=== PATIENT | female | born 1955 | race Caucasian/White ===

== ENCOUNTER 2019-09-01 15:52 | Emergency (ER) | payer OTHER, SELFPAY ==
[2019-09-01 16:34] VITALS: BP 132/57; PULSE 96; RESP 12; TEMP 36.4; O2SAT 92; BMI 18.0
--- NOTE | 2019-09-01 16:58 | ED_ITS ---
HPI - Neuro Symptoms/Deficit General: Chief Complaint: Neuro Symptoms/Deficit Stated Complaint: carlene garnett Time Seen by Provider: 09/01/19 16:58 Source: patient Mode of arrival: ambulatory Limitations: no limitations History of Present Illness: HPI Narrative: Patient was brought in by her daughter today for concerns of a headache this morning. Patient reports that she had woke up this morning with a headache and took 2 ibuprofen. Patient then laid down at 8:00 and slept for about 3 hours. When patient awakened at 11 she felt well and has had no problems since. Patient mentioned it to her daughter who brought her to the ER for concerns of stroke syndrome. Patient had a history of a stroke about 2 years ago and was told that if she had a headache she was supposed to come to the ER to for further evaluation. Patient appears well. Patient appears in no acute distress. Patient denies any headache at this time. And patient appears to have no neural deficits. Associated symptoms: Reports headache(s) Review of Systems General: Reports: 10 or more systems reviewed and unremarkable except in HPI and below Neuro: Reports: headache(s) [facility] ED PFSH: Social History Smoking and tobacco status: current every day smoker Physical Exam Const: COMMON NORMALS: no acute distress and patient oriented x3 GENERAL APPEARANCE: cooperative HENMT: COMMON NORMALS: normocephalic and Normal external nose present HEAD & SCALP: normal to inspection and normocephalic NOSE: Normal external nose present MOUTH: Normal oral and palatal mucosa present THROAT: posterior oropharynx normal Eye: GENERAL EYE: appearance normal, both eyes and all related structures Neck/C-Spine: COMMON NORMALS: full ROM Lymph: LYMPHATIC: no lymphadenopathy noted Chest: COMMONS NORMALS: normal inspection of the chest Resp: COMMON NORMALS: normal respiratory effort EFFORT & INSPECTION: Yes able to speak in complete sentences Cardio: COMMON NORMALS: regular rate and regular rhythm RATE: regular rate RHYTHM: regular rhythm GI: COMMON NORMALS: non-tender Back/Pelvis: COMMON NORMALS: thoracic and lumbar spine normal to inspection Extremity: COMMON NORMALS: normal to inspection Neuro: COMMON NORMALS: patient oriented x3 and moves all extremities Psych: COMMON NORMALS: mental status grossly normal and cooperative Skin: COMMON NORMALS: no rashes or lesions noted GENERAL SKIN EXAM: no rash es or lesions noted Course Vital Signs: Vital signs: Vital Signs Temperature 97.6 F 09/01/19 16:34 Pulse Rate 91 09/01/19 17:22 Respiratory Rate 16 09/01/19 17:22 Blood Pressure 106/64 09/01/19 17:22 Pulse Oximetry 95 09/01/19 17:22 MDM - Neuro Symptoms/Deficit MDM Narrative: Medical decision making narrative: Patient was brought in by daughter for concerns of a headache she had this morning. Patient had no noticeable neural deficits. Patient reports that her headache was resolved after using ibuprofen this morning. Patient vital signs were normal. Differential diagnosis includes but not limited to inner cerebral hemorrhage, headache syndrome, electrolyte disturbance. Reviewed exam with patient with recommendations for follow-up and treatment. Patient reports understanding agreed to plan. Lab Data: Labs: Lab Results 09/01/19 09/01/19 Range/Units 17:15 17:15 WBC 5.0 (4.0-10.0) 10^3/ uL RBC 4.56 (4.1-5.3) 10^6/u L Hgb 14.8 (11.5-15.3) g/dL Hct 45.8 (37.0-47.0) % MCV 100.4 H (81-99) fL MCH 32.5 (28.0-34.0) pg MCHC 32.3 (30.0-36.0) g/dL RDW 13.3 (12.1-15.1) % Plt Count 187 (130-400) 10^3/c mm MPV 11.8 H (7.4-10.4) fL Neut % (Auto) 55.2 % Lymph % (Auto) 32.7 % [place] % (Auto) 9.9 % Eos % (Auto) 1.6 % Baso % (Auto) 0.4 % Neut # (Auto) 2.7 (1.8-7.7) 10^3/u L Lymph # (Auto) 1.6 (0.8-4.8) 10^3/u L [place] # (Auto) 0.5 (0.2-0.9) 10^3/u L Eos # (Auto) 0.1 (0.0-0.8) 10^3/u L Baso # (Auto) 0.0 (0.0-0.1) 10^3/u L Nucleated RBC % (a uto) 0 % Nucleated RBCs # 0.0 /100WBC Sodium 134 L (136-145) mmol/L Potassium 3.9 (3.5-5.1) mmol/L Chloride 91 L (98-107) mmol/L Carbon Dioxide 33 H (22-29) mmol/L Anion Gap 13.9 (5-19) BUN 17 (8-23) mg/dL Creatinine 0.6 (0.5-0.9) mg/dL GFR Calculation 101.0 (90-130) mL/min Glucose 86 (65-115) mg/dL Calculated Osmolal ity 274 L (285-295) mOsm/k g Calcium 10.1 (8.5-10.5) mg/dL Total Bilirubin 0.5 (0.15-1.2) mg/dL AST 19 (0-32) U/L ALT 12 (0-33) U/L Alkaline Phosphata se 54 (35-105) IU/L Total Protein 6.7 (6.6-8.7) g/dL Albumin 4.5 (3.5-5.2) g/dL Globulin 2.2 (1.3-4.6) g/dL EKG Data^: EKG 1: Attestation: I personally reviewed and interpreted this EKG as follows: (1715, sinus rhythm with regular rate at 82 bpm. No ectopy, no ST elevation. Some artifact is present.) Discharge Plan Discharge Patient Disposition: Home, Self-Care Clinical Impression: Headache Qualifiers: Headache type: unspecified Headache chronicity pattern: acute headache Intractability: not intractable Qualified Code(s): R51 - Headache Condition: Stable Discharge Orders: Discharge Order (Routine); Ordered 09/01/19 Ordered By: Durga Johnson Referrals: Marely Head FNP [Primary Care Provider] - Discharge Diet: Usual diet Discharge Activity: Increase activity as tolerated Patient Instructions: Acute Headache (ED) Activity Restrictions/Additional Instructions: Drink plenty of fluids. Continue routine medications as directed. Use acetaminophen or ibuprofen as needed for headache. If headaches not relieved with ibuprofen or other symptoms are noted return to the ER. Follow-up with primary care regarding headaches and further treatment options. Coding Level of Care Code ED Manager Basketball for Chg Fwd Exam Comprehensive
[2019-09-01 17:22] VITALS: BP 106/64; PULSE 91; RESP 16; O2SAT 95
--- NOTE | 2019-09-01 17:23 | ECG_ITS ---
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 Measurements Intervals [place] Rate: 82 P: 88 [place]: 149 QRS: 97 QRSD: 98 T: 89 QT: 362 QTc: 423 Interpretive Statements SINUS RHYTHM BORDERLINE RIGHT AXIS DEVIATION [QRS AXIS > 90] PATTERN CONSISTENT WITH PULMONARY DISEASE NONSPECIFIC ST ELEVATION [0.05+ mV ST ELEVATION] No previous ECG available for comparison Electronically Signed On 09-01-2019 21:51:34 CDT by Tony Loyola M.D. [id number]
--- NOTE | 2019-09-01 17:23 | CTR_ITS ---
PROCEDURE INFORMATION: Exam: CT Head Without Contrast Exam date and time: 09/01/2019 5:24 PM Age: 64 years old Clinical indication: Pain; Headache not specified; Patient HX: HX of stroke C/O UMAÑA this am - resolved; Additional info: Head ache TECHNIQUE: Imaging protocol: Computed tomography of the head without contrast. Radiation optimization: All CT scans at this facility use at least one of these dose optimization techniques: automated exposure control; mA and/or kV adjustment per patient size (includes targeted exams where dose is matched to clinical indication); or iterative reconstruction. COMPARISON: No relevant prior studies available. RADIATION DOSE METRICS: Total DLP (mGy-cm): 770.97 FINDINGS: Brain: Old left frontal operculum and left temporal lobe infarction. 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 Old posterior right frontal lobe lacunar infarction. Atrophic changes greater than that anticipated for the patient's chronological age. Currently no visible evidence of active or acute intracranial pathologic process. No visible intracranial hemorrhage. No visible direct or indirect findings of an acute or subacute infarction. Ventricles: No ventriculomegaly. Bones/joints: Unremarkable. No acute fracture. Sinuses: Mild chronic ethmoid and right maxillary sinusitis. Mastoid air cells: Visualized mastoid air cells are well aerated. Vasculature: Mild cerebral arterial sclerosis. Soft tissues: Unremarkable. CT/CT head wo con* [id number] IMPRESSION: 1. Currently no visible evidence of active or acute intracranial pathologic process or hemorrhage. 2. Old left frontal operculum and left temporal lobe infarction. 3. Old posterior right frontal lobe with lacunar infarction. Radiation Dose CTDIVOL = (mGy): DLP = 770.97 (mGy-cm)
[2019-09-01 17:48] LABS: Basophils % 0.4 %; Eosinophils # 0.1 10^3/uL (0.0-0.8); Eosinophils % 1.6 %; Hematocrit 45.8 % (37.0-47.0); Hemoglobin 14.8 g/dL (11.5-15.3); Lymphocytes # 1.6 10^3/uL (0.8-4.8); Lymphocytes % 32.7 %; Mean Corpuscular HGB Conc 32.3 g/dL (30.0-36.0); Mean Corpuscular Hemoglobin 32.5 pg (28.0-34.0); Mean Corpuscular Volume 100.4 fL (81-99); Mean Platelet Volume 11.8 fL (7.4-10.4); Monocytes # 0.5 10^3/uL (0.2-0.9); Monocytes % 9.9 %; Neutrophils # 2.7 10^3/uL (1.8-7.7); Neutrophils % 55.2 %; Nucleated Red Blood Cells % 0 %; Platelet Count 187 10^3/cmm (130-400); Red Blood Count 4.56 10^6/uL (4.1-5.3); Red Cell Distribution Width 13.3 % (12.1-15.1)
[2019-09-01 18:03] LABS: Alanine Aminotransferase 12 U/L (0-33); Albumin Level 4.5 g/dL (3.5-5.2); Alkaline Phosphatase 54 IU/L (35-105); Anion Gap 13.9 (5-19); Aspartate Amino Transferase 19 U/L (0-32); Blood Urea Nitrogen 17 mg/dL (8-23); Calcium 10.1 mg/dL (8.5-10.5); Carbon Dioxide 33 mmol/L (22-29); Chloride 91 mmol/L (98-107); Globulin 2.2 g/dL (1.3-4.6); Glucose 86 mg/dL (65-115); Osmolality Calculated 274 mOsm/kg (285-295); Potassium 3.9 mmol/L (3.5-5.1); Sodium 134 mmol/L (136-145); Total Bilirubin 0.5 mg/dL (0.15-1.2); Total Protein 6.7 g/dL (6.6-8.7)
[2019-09-01 19:02] VITALS: BP 141/73; PULSE 85; RESP 17; TEMP 36; O2SAT 92
== END 2019-09-01 18:39 | disposition home or self-care (01) ==
PROVIDERS: Emergency Provider Nurse Practitioner Family; PCP Nurse Practitioner
DX: R51 Headache (principal); F17.210 Nicotine dependence, cigarettes, uncomplicated
CPT/HCPCS: 12345; 70450; 80053; 85025; 93005; 99283

== ENCOUNTER → 2022-08-10 15:02 | Outpatient (BNVA) | payer MEDICARE, SELFPAY | PROVIDERS: PCP Nurse Practitioner; Visit Provider Nurse Practitioner | DX: E03.9 Hypothyroidism, unspecified (principal); L29.9 Pruritus, unspecified; L03.115 Cellulitis of right lower limb | CPT/HCPCS: 80053; 84443; 85025 ==

== ENCOUNTER → 2022-10-15 08:39 | Outpatient (BNVA) | payer MEDICARE, SELFPAY | PROVIDERS: PCP Nurse Practitioner; Visit Provider Nurse Practitioner | DX: E03.8 Other specified hypothyroidism (principal) | CPT/HCPCS: 84443; 85025 ==

== ENCOUNTER → 2022-12-15 09:16 | Outpatient (BNVA) | payer MEDICARE, SELFPAY | PROVIDERS: PCP Nurse Practitioner; Visit Provider Nurse Practitioner | DX: E03.8 Other specified hypothyroidism (principal) | CPT/HCPCS: 80053; 84443; 85025 ==

== ENCOUNTER → 2023-03-11 12:15 | Outpatient (BNVA) | payer MEDICARE, SELFPAY | PROVIDERS: PCP Nurse Practitioner; Visit Provider Nurse Practitioner | DX: E03.8 Other specified hypothyroidism (principal) | CPT/HCPCS: 84443 ==

== ENCOUNTER → 2023-05-24 11:43 | Outpatient (BNVA) | payer OTHER, SELFPAY | PROVIDERS: PCP Nurse Practitioner; Visit Provider Nurse Practitioner | DX: E03.8 Other specified hypothyroidism (principal) | CPT/HCPCS: 80053; 80061; 84439; 84443; 84481 ==

== ENCOUNTER 2023-08-17 12:20 | Inpatient (IN) | payer OTHER, SELFPAY ==
[2023-08-17] VITALS (17 sets, daily range): BP systolic 98–123; BP diastolic 48–74; PULSE 100–126; RESP 12–21; TEMP 36.4–36.6; O2SAT 88–99
--- NOTE | 2023-08-17 12:23 | ECG_ITS ---
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 Measurements Intervals [place] Rate: 113 P: 75 [place]: 141 QRS: 112 QRSD: 98 T: 53 QT: 317 QTc: 436 Interpretive Statements SINUS TACHYCARDIA RIGHT AXIS DEVIATION [QRS AXIS > 100] LOW QRS VOLTAGE IN EXTREMITY LEADS [QRS DEFLECTION < 0.5 mV IN LIMB LEADS] PATTERN CONSISTENT WITH PULMONARY DISEASE Compared to ECG 09/01/2019 17:15:43 Low QRS voltage now present Sinus rhythm no longer present ST (T wave) deviation no longer present Electronically Signed On 08-17-2023 17:19:48 CDT by Dangelo Narvaez M.D. [id number]
--- NOTE | 2023-08-17 12:23 | XRR_ITS ---
PROCEDURE INFORMATION: Exam: XR Chest Exam date and time: 08/17/2023 12:40 PM Age: 68 years old Clinical indication: Cough and dyspnea; Additional info: Dyspnea/cough TECHNIQUE: Imaging protocol: Radiologic exam of the chest. Views: 1 view. COMPARISON: No relevant prior studies available. FINDINGS: Lungs: There are emphysematous changes noted. There are patchy bilateral lower lobe infiltrates, xkfes-jhzobme-xeyq-left. Pleural spaces: There are iccnb-ne-sddkpnsr right and small left pleural effusions. Heart/Mediastinum: The heart size is within normal limits. Bones/joints: There is a remote healed fracture deformity of the right posterior 7th rib. XR/XR chest 1V portable [id number] IMPRESSION: 1. Gxlii-qt-swumutkx right and small left pleural effusions with bilateral lower lobe infiltrates, suspicious for pneumonia. 2. Emphysematous changes
--- NOTE | 2023-08-17 12:28 | W.ED.SOB ---
HPI - SOB/Dyspnea General: Chief Complaint: Shortness of Breath/Dyspnea Stated Complaint: SOB, Gen weakness Time Seen by Provider: 08/17/23 12:23 Source: patient Mode of arrival: ambulatory History of Present Illness: HPI Narrative: 68-year-old female presents emergency room complaining of generalized weakness and short of breath increasing shortness of breath recently she is alert but very disoriented difficult time to get history from her she answers questions rather tangentially. She is requiring oxygen I usually she is on 2 they have increased it to 3 she denies chest pain or shortness of breath she does have a chronic cough which has worsened she denies a cough being productive. She still does smoke regularly although family members reported that she has gotten so weak she has difficult time even being able to smoke recently. MD elicited complaint: shortness of breath Pertinent past history: COPD Associated symptoms: Reports chest congestion and cough; Deny abdominal pain, chest pain, diaphoresis, dizziness, extremity pain, fever(s), hemoptysis, lightheadedness, myalgias, nausea, orthopnea, palpitations, paresthesias, polydipsia, polyuria, rash, sense of impending doom, syncope or vomiting Treatment prior to arrival: oxygen Review of Systems Const: Reports: fatigue and malaise; Denies: fever(s), chills or diaphoresis Card: Denies: chest pain, palpitations, lightheadedness, syncope or orthopnea Resp: Reports: dyspnea and chest congestion; Denies: hemoptysis GI: Denies: abdominal pain, nausea or vomiting : Denies: dysuria, urinary frequency or urinary urgency Musc: Denies: neck pain, back pain or extremity pain Skin/Breast: Denies: rash Neuro: Denies: dizziness Endo: Denies: polyuria or polydipsia PFS ED PFSH: Medical History Adult onset hypothyroidism History of stroke COPD (chronic obstructive pulmonary disease) with emphysema Surgical History No history of previous surgery Family History Other Cancer Dementia Stroke Denies family history of CAD (coronary artery disease) Chronic kidney disease (CKD) Hypertension Social History Smoking and tobacco/nicotine status: former use of tobacco/nicotine Second hand smoke exposure: No Alcohol intake: unknown Substance/Drug Use: unknown Adopted: No Caregiver/support person: No Lives independently: Yes Household members: none Housing: House Marital status: / service: No Current occupational status: unemployed Do you think of yourself as: Straight/Heterosexual Current gender identity: Female Physical Exam Const: GENERAL APPEARANCE: cooperative ORIENTATION/CONSCIOUSNESS: Yes awake, Yes oriented to person, Yes oriented to place and Yes oriented to time HENMT: COMMON NORMALS: normocephalic, atraumatic and hearing grossly normal bilaterally HEAD & SCALP: normocephalic and atraumatic Resp: COMMON NORMALS: normal respiratory effort, No retractions and No use of accessory muscles AUSCULTATION: rhonchi and wheezes Cardio: COMMON NORMALS: regular rhythm and No murmurs present (Cardio) RATE: tachycardic RHYTHM: regular rhythm GI: COMMON NORMALS: Soft to palpation and No hepatosplenomegaly present AUSCULTATION: Yes normoactive bowel sounds PALPATION: Yes Soft to palpation, No Tenderness to palpation present (GI), No Guarding due to palpation present (GI) and Yes No hepatosplenomegaly present Extremity: COMMON NORMALS: normal to inspection, capillary refill normal, no clubbing, cyanosis or edema, no calf tenderness and no pedal edema Neuro: SENSORIUM/ORIENTATION: Yes oriented to person, Yes oriented to place and Yes oriented to time Skin: COMMON NORMALS: no rashes or lesions noted GENERAL SKIN EXAM: no rashes or lesions noted Course Vital Signs: Vital signs: Vital Signs Temperature 97.8 F 08/17/23 12:24 Pulse Rate 109 H 08/17/23 15:35 Respiratory Rate 12 08/17/23 15:35 Blood Pressure 108/59 08/17/23 15:35 Pulse Oximetry 99 08/17/23 15:35 Oxygen Delivery Me thod BiPAP 08/17/23 15:12 Oxygen Flow Rate 3 08/17/23 12:41 Fraction of Inspir ed Oxygen 35 08/17/23 13:23 MDM - SOB/Dyspnea Medical Decision Making Acute exacerbation COPD with bilateral pleural effusions and signs of pneumonia right greater than left. Started on IV antibiotics fluids given discussed with hospitalist orders written. Medical Records I reviewed the patient's medical records. Lab Data I reviewed the patient's lab results. 08/17/23 13:03 08/17/23 13:03 Labs/Radiology: Radiology Impressions Chest X-Ray 08/17/23 12:23 IMPRESSION: 1. Vlewz-nq-nksqykes right and small left pleural effusions with bilateral lower lobe infiltrates, suspicious for pneumonia. 2. Emphysematous changes Chest CTA 08/17/23 13:36 IMPRESSION: 1. No evidence of pulmonary embolus. 2. Moderate RIGHT and small LEFT pleural effusions with compressive atelectasis RIGHT lower lobe. Laboratory Results WBC 6.43 10^3/uL (3.29-11.43) 08/17/23 13:03 RBC 4.85 10^6/uL (3.85-5.65) 08/17/23 13:03 Hgb 15.70 g/dL (11.27-16.99) 08/17/23 13:03 Hct 51.5 % (36-47) H 08/17/23 13:03 MCV 106.2 fl (85-98) H 08/17/23 13:03 MCH 32.4 pg (27-33) 08/17/23 13:03 MCHC 30.5 g/dL (30-55) 08/17/23 13:03 RDW 14.9 % (12.1-15.1) 08/17/23 13:03 Plt Count 156 10^3/cmm (157-399) L 08/17/23 13:03 MPV 11.3 fL (7.4-10.4) H 08/17/23 13:03 Neut % (Auto) 80.4 % 08/17/23 13:03 Lymph % (Auto) 9.5 % 08/17/23 13:03 [place] % (Auto) 9.5 % 08/17/23 13:03 Eos % (Auto) 0.0 % 08/17/23 13:03 Baso % (Auto) 0.3 % 08/17/23 13:03 Neut # (Auto) 5.17 10^3/uL (1.8-7.7) 08/17/23 13:03 Lymph # (Auto) 0.6 10^3/uL (0.8-4.8) L 08/17/23 13:03 [place] # (Auto) 0.6 10^3/uL (0.2-0.9) 08/17/23 13:03 Eos # (Auto) 0.0 10^3/uL (0.0-0.8) 08/17/23 13:03 Baso # (Auto) 0.0 10^3/uL (0.0-0.1) 08/17/23 13:03 Nucleated RBC % (auto) 0 % 08/17/23 13:03 Nucleated RBCs # 0.0 /100WBC 08/17/23 13:03 Specimen Type Arterial 08/17/23 12:59 Sample Site Brachial, left 08/17/23 12:59 ABG pH 7.31 (7.35-7.45) L 08/17/23 12:59 ABG pCO2 88.2 mmHg (35-45) H* 08/17/23 12:59 ABG pO2 79.4 mmHg (80.0-100.0) L 08/17/23 12:59 ABG PO2/FiO2 Ratio 0 08/17/23 12:59 ABG HCO3 44.5 mmol/L (22-26) H 08/17/23 12:59 ABG O2 Saturation 94.8 08/17/23 12:59 ABG Base Excess 13.1 mmol/L (-2.0-2.0) H 08/17/23 12:59 Manuel Test Pos 08/17/23 12:59 A-a O2 Gradient 5.7 mmHg (5-10) 08/17/23 12:59 Hematocrit 49.7 % (37-47) H 08/17/23 12:59 Hgb O2 Saturation 92.9 % (95-100) L 08/17/23 12:59 Carboxyhemoglobin 2.0 %THgb (0.4-20.1) 08/17/23 12:59 Methemoglobin 0.0 % (0.4-1.5) L 08/17/23 12:59 Total Hemoglobin 16.2 g/dL (12-16) H 08/17/23 12:59 Sodium 137.0 mmol/L (131-143) 08/17/23 12:59 Potassium 4.4 mmol/L (3.5-5.0) 08/17/23 12:59 Glucose 111.0 mg/dL (70-115) 08/17/23 12:59 Ionized Calcium 1.2 mmol/L (1.1-1.4) 08/17/23 12:59 O2 Delivery Device Nc 08/17/23 12:59 O2 Liters/Min 3.0 % 08/17/23 12:59 FiO2 32.0 % 08/17/23 12:59 Radioactive Waste Disposal Dispatcher ID Cak 08/17/23 12:59 Sodium 139 mmol/L (136-145) 08/17/23 13:03 Potassium 4.8 mmol/L (3.5-5.1) 08/17/23 13:03 Chloride 93 mmol/L (98-107) L 08/17/23 13:03 Carbon Dioxide 42 mmol/L (22-29) H* 08/17/23 13:03 Anion Gap 8.8 (5-19) 08/17/23 13:03 BUN 22 mg/dL (8-23) 08/17/23 13:03 Creatinine 0.6 mg/dL (0.5-0.9) 08/17/23 13:03 GFR Calculation 99.7 mL/min (90-130) 08/17/23 13:03 Glucose 123 mg/dL (65-115) H 08/17/23 13:03 Calculated Osmolality 293 mOsm/kg (285-295) 08/17/23 13:03 Lactic Acid 1.0 mmol/L (0.5-2.2) 08/17/23 13:03 Calcium 8.8 mg/dL (8.5-10.5) 08/17/23 13:03 Total Bilirubin 0.5 mg/dL (0.15-1.2) 08/17/23 13:03 AST 19 U/L (0-32) 08/17/23 13:03 ALT 13 U/L (0-33) 08/17/23 13:03 Alkaline Phosphatase 74 U/L (35-105) 08/17/23 13:03 Troponin T Baseline 106 ng/L (0-10) H* 08/17/23 13:03 Troponin T 120 Minute 68.00 ng/L (0-10) H 08/17/23 14:52 Delta Troponin T -38.00 ABS# (0-10) L 08/17/23 14:52 NT-Pro-B Natriuret Pep 8162 pg/mL (0-125) H 08/17/23 13:03 Total Protein 5.6 g/dL (6.6-8.7) L 08/17/23 13:03 Albumin 3.4 g/dL (3.5-5.2) L 08/17/23 13:03 Globulin 2.2 g/dL (1.3-4.6) 08/17/23 13:03 All radiology interpretation(s) finalized by discharge Discharge Plan Discharge Patient Disposition: Admitted As Inpatient Admit Provider: Kimberly Albright Clinical Impression: Acute exacerbation of chronic obstructive pulmonary disease (COPD), Acute respiratory failure with hypoxia and hypercapnia, Community acquired pneumonia Condition: Stable Coding Level of Care Code ED Relief Salesperson for Godwin Du
[2023-08-17] MEDS: ipratropium-albuterol 3 mL Neb INHALATION ×3 (12:40→20:46)
[2023-08-17 13:10] LABS: ABG PCO2 88.2 mmHg (35-45); ABG PH Result 7.31 (7.35-7.45); Alveolar-Arterial Oxygen Gradi 5.7 mmHg (5-10); Arterial Blood Gas Hematocrit 49.7 % (37-47); Base Excess ABG 13.1 mmol/L (-2.0-2.0); Blood Gas Allen Test Pos; Blood Gas Operator Identificat CAK; Blood Gas Sample Site Brachial, left; Blood Gas Sample Type Arterial; HCO3 ABG 44.5 mmol/L (22-26); HGB O2 Sat 92.9 % (95-100); Ionized Calcium Level - ABG 1.2 mmol/L (1.1-1.4); Oxygen Device NC; Oxygen Saturation ABG 94.8; PO2 ABG 79.4 mmHg (80.0-100.0); PO2 FiO2 Ratio Arterial Blood 0; Potassium Level - ABG 4.4 mmol/L (3.5-5.0); Total Hemoglobin 16.2 g/dL (12-16)
[2023-08-17 13:10] LABS: Basophils % 0.3 %; Hematocrit 51.5 % (36-47); Lymphocytes # 0.6 10^3/uL (0.8-4.8); Lymphocytes % 9.5 %; Mean Corpuscular HGB Conc 30.5 g/dL (30-55); Mean Corpuscular Hemoglobin 32.4 pg (27-33); Mean Corpuscular Volume 106.2 fl (85-98); Mean Platelet Volume 11.3 fL (7.4-10.4); Monocytes # 0.6 10^3/uL (0.2-0.9); Monocytes % 9.5 %; Neutrophils # 5.17 10^3/uL (1.8-7.7); Neutrophils % 80.4 %; Nucleated Red Blood Cells % 0 %; Platelet Count 156 10^3/cmm (157-399); Red Blood Count 4.85 10^6/uL (3.85-5.65); Red Cell Distribution Width 14.9 % (12.1-15.1); White Blood Count 6.43 10^3/uL (3.29-11.43)
[2023-08-17 13:30] LABS: Alanine Aminotransferase 13 U/L (0-33); Albumin Level 3.4 g/dL (3.5-5.2); Alkaline Phosphatase 74 U/L (35-105); Anion Gap 8.8 (5-19); Aspartate Amino Transferase 19 U/L (0-32); Blood Urea Nitrogen 22 mg/dL (8-23); Calcium 8.8 mg/dL (8.5-10.5); Chloride 93 mmol/L (98-107); Creatinine Clr Calc Pharmacy 54.3916; Globulin 2.2 g/dL (1.3-4.6); Glomerular Filtration Rate 99.7 mL/min (90-130); Glucose 123 mg/dL (65-115); Osmolality Calculated 293 mOsm/kg (285-295); Potassium 4.8 mmol/L (3.5-5.1); Sodium 139 mmol/L (136-145); Total Bilirubin 0.5 mg/dL (0.15-1.2); Total Protein 5.6 g/dL (6.6-8.7)
[2023-08-17 13:34] LABS: Carbon Dioxide 42 mmol/L (22-29)
[2023-08-17 13:35] LABS: Troponin(5th) Baseline 106 ng/L (0-10)
--- NOTE | 2023-08-17 13:36 | CT_ITS ---
WS: [id number] CTA OF THE CHEST WITH PULMONARY EMBOLISM PROTOCOL TECHNIQUE: High-resolution contrast enhanced CTA of the chest with coronal and sagittal reformatted i mages with pulmonary embolism protocol. MIP images are also reviewed. CLINICAL INFORMATION: dyspnea/tachycardia/hypoxia COMPARISON: None. DLP: 203.[address] scans at [facility] use at least one of these dose optimization techniques: automated e xposure control; mA and/or kV adjustment per patient size (includes targeted exams where dose is matc hed to clinical indication); or iterative reconstruction. FINDINGS: Proximal main pulmonary arteries are normal. Normal segmental and subsegmental pulmonary arteries. No evidence of pulmonary embolus. Moderate RIGHT and small LEFT pleural effusions. Compressive atelectasis RIGHT lower lobe. Chronic em physematous changes. Few patchy opacities in the RIGHT middle lobe. Diffuse body wall anasarca. Basilia l caliber thoracic aorta. Normal GE junction. Anasarca partially visualized in the upper abdomen. Par tially visualized LEFT renal cysts. Small RIGHT renal cyst. CT/CT angio chest PE protcl [id number] IMPRESSION: 1. No evidence of pulmonary embolus. 2. Moderate RIGHT and small LEFT pleural effusions with compressive atelectasi s RIGHT lower lobe.
--- NOTE | 2023-08-17 13:36 | USCV_ITS ---
David Frias Age: 68 Gender: F : 1955 Exam Date: 08/17/2023 13:56 Ordering Phys: Papo Hardy DO Technologist: [email or web address] Exam Location: [facility] [place] Indication: PROCEDURES: Venous duplex imaging was performed in bilateral lower extremities. Bilaterally, the common femoral, superficial femoral, profunda femoral, popliteal, posterior tibial, greater saphenous veins, and the peroneal trunk were identified and interrogated in the standard fashion. These veins were found to be easily compressible with spontaneous blood flow. No evidence of insufficiency or thrombus noted. FINDINGS: no dvt CONCLUSIONS No evidence of right lower extremity DVT. No evidence of left lower extremity DVT. Wei Calles MD (Electronically Signed) Final Date: 17 August 2023 16:34 S
--- NOTE | 2023-08-17 14:10 | ECG_ITS ---
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 Measurements Intervals [place] Rate: 102 P: 74 [place]: 139 QRS: 106 QRSD: 93 T: 73 QT: 350 QTc: 457 Interpretive Statements SINUS TACHYCARDIA RIGHT AXIS DEVIATION [QRS AXIS > 100] LOW QRS VOLTAGE IN EXTREMITY LEADS [QRS DEFLECTION < 0.5 mV IN LIMB LEADS] POSSIBLE ANTERIOR MYOCARDIAL INFARCTION , OF INDETERMINATE AGE [30 ms Q WAVE IN V3/V4, OR R < 0.2 mV IN V4] Compared to ECG 08/17/2023 12:27:50 Myocardial infarct finding now present Electronically Signed On 08-17-2023 17:23:13 CDT by Dangelo Narvaez M.D. [id number]
[2023-08-17 14:12] LABS: NT Pro B Type Natriuretic Pept 8162 pg/mL (0-125)
[2023-08-17] MEDS: iohexol 350 mg/mL 500 mL Btl (per mL) IV (14:19)
[2023-08-17] MEDS: piperacillin-tazobactam 3.375 GM in sodium chloride 0.9% (plus) 50 ML IV (14:53)
--- NOTE | 2023-08-17 15:01 | P.HP_ITS ---
Providers/Chief Complaint 2 Primary Care Provider: BLANCA Odonnell Chief Complaint: SOB, Gen weakness History of Present Illness David Frias is a 68 year old female with history of hypothyroidism, COPD on supplemental oxygen 4 L nasal cannula at home, active smoker, smokes more than 2 packs/day, presented with complaint of worsening shortness of breath since 2 weeks. Patient states that she started feeling short of breath 2 weeks ago initially on exertion and then gradually progressed to shortness of breath at rest, was not associated with any fever, cold, although she was coughing initially but no significant cough, chest pain, urinary or bowel complaints. She denies any history of recent travel or sick contact. She admits she has not been smoking since last 2 weeks and was increasing her supplemental oxygen but without any relief. She had a PCP appointment scheduled 1 week ago but she missed it. Her shortness of breath made her bedbound gradually and she was sleeping most of the time and it was associated with severe weakness and right- sided facial swelling.She recently has been using medical marijuana which she says helps her to calm her down and improves her breathing. In ER she was found to have a BNP of 8162, first set of troponins 106, ABGs 7 point 3/88/79/44/92% on room air. She was started on BiPAP at 18/6/12/35% FiO2 and was still saturating at 79%. FiO2 increased to 40% and she is saturating 88 to 89%. Review of Systems 2 General: Reports: 10 or more systems reviewed and unremarkable except in HPI and below Medications/Allergies Home Medications Medication Instructions Recorded Confirmed Last Taken Type levothyroxine 125 mcg tablet 125 mcg PO DAILY #30 tabs 05/27/23 08/17/23 08/17/23 Rx Allergies Allergy/AdvReac Type Severity Reaction Status Date / Time No Known Allergies Allergy Verified 08/17/23 10:57 PFSH Acute 2 PFSH: Medical History Adult onset hypothyroidism History of stroke COPD (chronic obstructive pulmonary disease) with emphysema Surgical History No history of previous surgery Family History Other Cancer Dementia Stroke Denies family history of CAD (coronary artery disease) Chronic kidney disease (CKD) Hypertension Social History Smoking and tobacco/nicotine status: former use of tobacco/nicotine Second hand smoke exposure: No Alcohol intake: unknown Substance/Drug Use: unknown Adopted: No Caregiver/support person: No Lives independently: Yes Household members: none Housing: House Marital status: / service: No Current occupational status: unemployed Do you think of yourself as: Straight/Heterosexual Current gender identity: Female Vitals/I&O/Wt Last Vital Signs Temp 97.8 F 08/17/23 12:24 Pulse 107 H 08/17/23 13:57 Resp 18 08/17/23 12:41 BP 104/65 08/17/23 13:57 Pulse Ox 93 08/17/23 13:57 O2 Del Method BiPAP 08/17/23 13:57 O2 Flow Rate 3 08/17/23 12:41 FiO2 35 08/17/23 13:23 Weight last 48 hrs Weight 47.627 kg Physical Exam 2 Narrative: She is alert awake oriented x 3, in no acute distress due to dyspnea, unable to speak in full sentences. Chest air entry equal on both sides, decreased breath sounds at bilateral bases, normal breath sounds anteriorly. Cardiovascular normal heart sounds no murmurs. Abdomen soft nontender nondistended normal bowel sounds. Extremities no edema noted bilateral lower extremities Data 08/17/23 13:03 08/17/23 13:03 Micro: Microbiology 08/17/23 13:42 Blood Culture - Preliminary Blood SPECIMEN COLLECTED 08/17/23 13:50 Blood Culture - Preliminary Blood SPECIMEN COLLECTED A&P Assessment and plan (1) Acute respiratory failure with hypoxia and hypercapnia: (2) Acute exacerbation of chronic obstructive pulmonary disease (COPD): (3) Fluid overload: (4) Hypothyroidism: Plan 68 year old female with history of hypothyroidism, COPD on supplemental oxygen 4 L nasal cannula at home, active smoker, smokes more than 2 packs/day, presented with complaint of worsening shortness of breath since 2 weeks, found to have a BNP of 8162, pCO2 of 88 and chest x-ray consistent with 1. Modhi-zz-vzuwbdwj right and small left pleural effusions with bilateral lower lobe infiltrates, suspicious for pneumonia. 2. Emphysematous changes and Chest CTA 1. No evidence of pulmonary embolus. 2. Moderate RIGHT and small LEFT pleural effusions with compressive atelectasis RIGHT lower lobe. EKG showed sinus tachycardia at 113 bpm, right axis deviation, no acute ST-T changes. (1) Acute hypoxic and hypercarbic respiratory failure second Wendell to acute COPD exacerbation and possible pneumonia- Continue BiPAP for now Repeat ABG in 3 hours Will do IV antibiotics ceftriaxone 1 g daily and IV azithromycin 500 mg daily IV Solu-Medrol 60 mg every 8 hours DuoNebs every 6 hours Will follow blood cultures Check 2D echo Follow-up troponins. (2) Hypothyroidism-will continue levothyroxine 125 mcg daily (3) Counseled and educated about smoking cessation Cardiac diet DVT prophylaxis with subcutaneous Lovenox GI prophylaxis with IV Pepcid 20 mg twice daily She is full code for now Attestations 2 Medical Necessity Statement*: She needs continued hospitalization crossing 2 midnights for management of acute hypoxic and hypercarbic respiratory failure with BiPAP support, IV antibiotics and steroids, 2D echo and troponins check Time Spent in Patient Care: 45 minutes Coding Level of Care Code Acute Code for Chg Fwd Diagnoses Acute respiratory failure with hypoxia and hypercapnia J96.01; J96.02 Acute exacerbation of chronic obstructive pulmonary disease (COPD) J44.1 Fluid overload E87.70 Hypothyroidism E03.9 Time Spent (min) 45
--- NOTE | 2023-08-17 15:20 | USCV_ITS ---
David Frias Age: 68 Gender: F : 1955 Exam Date: 08/17/2023 20:16 Ordering Phys: Kimberly Albright MD Technologist: CORNELIUS Exam Location: [facility] [place] Indication: acute resp failure, COPD, long-term smoker, continues smoking. BP: 98 / 48 HR: 105 Rhythm: Sinus Technical Quality: Adequate MEASUREMENTS (Male / Female) Normal Values 2D ECHO LV Diastolic Diameter PLAX 3.4 cm 4.2 - 5.9 / 3.9 - 5.3 cm IVS Diastolic Thickness 1.0 cm 0.6 - 1.0 / 0.6 - 0.9 cm IVS Systolic Thickness 1.3 cm LVPW Diastolic Thickness 1.2 cm 0.6 - 1.0 / 0.6 - 0.9 cm LVPW Systolic Thickness 1.5 cm LVOT Diameter 1.8 cm LV Ejection Fraction 2D Teich 64.0 % LV Ejection Fraction MOD 2C 67.6 % LV Ejection Fraction 2C AL 64.6 % LA Diameter 3.6 cm Aorta at Sinotubular Diameter 2.8 cm IVC Diameter 3.1 cm M-MODE LA Ao Ratio MM 1.2 AV Cusp Separation MM 1.8 cm DOPPLER AV Peak Velocity 132.0 cm/s LVOT Peak Velocity 79.0 cm/s AV Area Cont Eq vti 1.9 cm squared AV Area Cont Eq pk 1.5 cm squared MV Peak Velocity 91.0 cm/s MV Area PHT 6.3 cm squared Mitral E to A Ratio 0.8 TV Peak Velocity 282.3 cm/s TR Peak Velocity 283.0 cm/s TR Peak Gradient 32.0 mmHg TV Peak E Velocity 41.0 cm/s Right Atrial Pressure 10.0 mmHg Pulmonary Artery Systolic Pressu 42.0 mmHg PV Peak Velocity 80.0 cm/s FINDINGS Left Ventricle Left ventricle is normal in size. LV systolic function is normal with EF of 60 to 65%. No regional wall abnormalities are seen. Grade 1 diastolic dysfunction. Right Ventricle RV is dilated and hypokinetic. Right Atrium Dilated Left Atrium Dilated Mitral Valve Structurally normal mitral valve. Mild mitral regurgitation Aortic Valve Aortic valve is thickened. No significant stenosis or regurgitation. Tricuspid Valve Mild tricuspid regurgitation. RVSP is 40 to 45 mmHg. This is consistent with mild pulmonary hypertension. Pulmonic Valve Mild pulmonic regurgitation. Pericardium Normal. Pleural effusion seen Aorta Normal in size IVC Appears to be dilated CONCLUSIONS LV systolic function is normal with EF of 60-65% Grade 1 diastolic dysfunction RV is dilated and hypokinetic. Biatrial enlargement Mild mitral regurgitation Mild tricuspid regurgitation Mild pulmonary hypertension Pleural effusion is seen IVC is dilated No comparison studies are available. Dangelo Narvaez MD (Electronically Signed) Final Date: 18 August 2023 09:11 S
[2023-08-17] MEDS: levofloxacin-dextrose 5 % 500 MG/100 ML PREMIX 100 MG IV (15:30)
[2023-08-17] MEDS: enoxaparin 40 mg/0.4 mL Syringe SUBCUT (15:57)
[2023-08-17] MEDS: famotidine 20 mg/2 mL INJ IVP (16:42)
[2023-08-17] MEDS: methylPREDNISolone sod succ 125 mg/2 mL INJ 60 MG IVP ×2 (16:42→23:36)
[2023-08-17] MEDS: azithromycin 500 MG in sodium chloride 0.9% 250 ML 250 MG IV (16:44)
[2023-08-17 17:24] LABS: ABG PH Result 7.39 (7.35-7.45); Alveolar-Arterial Oxygen Gradi 14.8 mmHg (5-10); Arterial Blood Gas Hematocrit 46.7 % (37-47); Base Excess ABG 14.7 mmol/L (-2.0-2.0); Blood Gas Allen Test Pos; Blood Gas Operator Identificat CAK; Blood Gas Sample Site Brachial, left; Blood Gas Sample Type Arterial; Carboxyhemoglobin 1.8 %THgb (0.4-20.1); HCO3 ABG 43.9 mmol/L (22-26); HGB O2 Sat 94.9 % (95-100); Ionized Calcium Level - ABG 1.2 mmol/L (1.1-1.4); Methemoglobin 0.1 % (0.4-1.5); Oxygen Device BIPAP; Oxygen Saturation ABG 96.8; PO2 ABG 83.2 mmHg (80.0-100.0); PO2 FiO2 Ratio Arterial Blood 0; Potassium Level - ABG 4.5 mmol/L (3.5-5.0); Total Hemoglobin 15.3 g/dL (12-16)
[2023-08-17 17:25] LABS: ABG PCO2 73.3 mmHg (35-45)
--- NOTE | 2023-08-17 17:35 | ECG_ITS ---
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 Measurements Intervals [place] Rate: 104 P: 81 [place]: 145 QRS: 121 QRSD: 89 T: 72 QT: 355 QTc: 468 Interpretive Statements SINUS TACHYCARDIA RIGHT AXIS DEVIATION [QRS AXIS > 100] LOW QRS VOLTAGE IN EXTREMITY LEADS [QRS DEFLECTION < 0.5 mV IN LIMB LEADS] POSSIBLE ANTERIOR MYOCARDIAL INFARCTION , OF INDETERMINATE AGE [30 ms Q WAVE IN V3/V4, OR R < 0.2 mV IN V4] Compared to ECG 08/17/2023 14:10:39 No significant changes Electronically Signed On 08-17-2023 17:38:49 CDT by Dangelo Narvaez M.D. [email or web address] [email or web address].[employer]/store/[id number]
[2023-08-17 19:47] LABS: Troponin 5 6HR 119.5 ng/L (0-10); Troponin 5 6HR Delta 13.5 ng/L (0-12)
[2023-08-17] MEDS: aspirin 81 mg EC Tablet PO (21:00)
[2023-08-17] MEDS: enoxaparin 30 mg/0.3 mL Syringe SUBCUT (21:02)
[2023-08-17] MEDS: FUROsemide 10 mg/mL SDV 4mL 40 MG IVP (21:04)
[2023-08-17 22:26] LABS: Add Urine Microscopic? YES; Bilirubin Urine Neg (Negative); Blood Urine 2+ (Negative); Glucose Urine UA Norm (Normal); Ketones Urine Negative (Negative); Leukocyte Esterase Urine Negative (Negative); Nitrate Urine Negative (Negative); Protein Urine Neg (Negative); Specific Gravity, Urine 1.015 (1.005-1.030); Urine Appearance Clear (CLEAR); Urine Color Yellow (Yellow); Urobilinogen Urine Norm (Negative); pH Urine 6 (5-7)
[2023-08-17 22:27] LABS: Add Urine Culture? No; Bacteria Urine TRACE /hpf; RBC Urine 0-4 /hpf (0-2); Squamous Epithelial Cell Urine 0-4 /hpf (0-5); WBC Urine 0-4 /hpf (0-5)
[2023-08-18] VITALS (20 sets, daily range): BP systolic 103–115; BP diastolic 56–65; PULSE 72–129; RESP 14–30; TEMP 36.4–37.4; O2SAT 87–95
[2023-08-18 03:53] LABS: Hematocrit 50.8 % (36-47); Lymphocytes # 0.2 10^3/uL (0.8-4.8); Lymphocytes % 5.5 %; Mean Corpuscular HGB Conc 30.9 g/dL (30-55); Mean Corpuscular Hemoglobin 31.9 pg (27-33); Mean Corpuscular Volume 103.3 fl (85-98); Mean Platelet Volume 11.8 fL (7.4-10.4); Monocytes # 0.1 10^3/uL (0.2-0.9); Monocytes % 3.1 %; Neutrophils # 3.46 10^3/uL (1.8-7.7); Neutrophils % 90.9 %; Nucleated Red Blood Cells % 0 %; Platelet Count 142 10^3/cmm (157-399); Red Blood Count 4.92 10^6/uL (3.85-5.65); White Blood Count 3.81 10^3/uL (3.29-11.43)
[2023-08-18] MEDS: famotidine 20 mg/2 mL INJ IVP ×2 (04:01→16:05)
[2023-08-18 04:15] LABS: Alanine Aminotransferase 11 U/L (0-33); Albumin Level 3.3 g/dL (3.5-5.2); Alkaline Phosphatase 69 U/L (35-105); Anion Gap 11.5 (5-19); Aspartate Amino Transferase 16 U/L (0-32); Blood Urea Nitrogen 20 mg/dL (8-23); Calcium 8.7 mg/dL (8.5-10.5); Chloride 89 mmol/L (98-107); Creatinine Clr Calc Pharmacy 63.8223; Glomerular Filtration Rate 99.7 mL/min (90-130); Glucose 130 mg/dL (65-115); Magnesium 1.8 mg/dL (1.7-2.3); Osmolality Calculated 288 mOsm/kg (285-295); Potassium 4.5 mmol/L (3.5-5.1); Sodium 137 mmol/L (136-145); Total Bilirubin 0.4 mg/dL (0.15-1.2); Total Protein 5.3 g/dL (6.6-8.7)
[2023-08-18 04:20] LABS: Carbon Dioxide 41 mmol/L (22-29)
[2023-08-18 04:21] LABS: NT Pro B Type Natriuretic Pept 7178 pg/mL (0-125)
[2023-08-18] MEDS: enoxaparin 80 mg/0.8 mL Syringe 70 MG SUBCUT ×2 (06:18→18:24)
[2023-08-18] MEDS: ipratropium-albuterol 3 mL Neb INHALATION ×4 (07:27→20:35)
[2023-08-18] MEDS: methylPREDNISolone sod succ 125 mg/2 mL INJ 60 MG IVP ×3 (08:59→22:40)
[2023-08-18] MEDS: cefTRIAXone 1,000 MG in sodium chloride 0.9% (plus) 50 ML 100 MG IV (08:59)
[2023-08-18] MEDS: aspirin 81 mg EC Tablet PO (08:59)
[2023-08-18] MEDS: levothyroxine 125 mcg Tablet PO (08:59)
--- NOTE | 2023-08-18 10:53 | PC.NURSE ---
BIPAP Pt on Bipap
--- NOTE | 2023-08-18 13:17 | P.PN_ITS ---
Subjective 2 Subjective: Seen her at bedside this morning. She was on nasal cannula saturating 88% on 4 L, looking less short of breath, feeling well. She was on BiPAP overnight and admits she was feeling comfortable. No other significant changes noted. Vitals/I&O/Wt Last Vital Signs Temp 98.4 F 08/18/23 11:27 Pulse 120 H 08/18/23 11:27 Resp 16 08/18/23 11:27 BP 115/56 08/18/23 11:27 Pulse Ox 88 L 08/18/23 11:27 O2 Del Method Nasal Cannula 08/18/23 11:27 O2 Flow Rate 5 08/18/23 11:06 FiO2 45 08/18/23 10:03 08/17/23 08/18/23 08/18/23 22:59 06:59 14:59 Intake Total 880 / 880 480 / 1360 530 / 530 Output Total 1400 / 1400 500 / 1900 Balance -520 / -520 -20 / -540 530 / 530 Weight last 48 hrs Weight 58.967 kg Weight 69.513 kg Weight 47.627 kg Physical Exam 2 Narrative: She is alert awake oriented x 3, able to speak in full sentences and looks comfortable on 4 L nasal cannula Chest air entry equal on both sides, decreased breath sounds at bilateral bases, normal breath sounds anteriorly. Cardiovascular normal heart sounds no murmurs. Abdomen soft nontender nondistended normal bowel sounds. Extremities no edema noted bilateral lower extremities Data 08/18/23 03:27 08/18/23 03:27 Micro: Microbiology 08/17/23 13:42 Blood Culture - Preliminary Blood SPECIMEN COLLECTED 08/17/23 13:50 Blood Culture - Preliminary Blood SPECIMEN COLLECTED A&P Assessment and plan (1) Acute respiratory failure with hypoxia and hypercapnia: (2) Acute exacerbation of chronic obstructive pulmonary disease (COPD): (3) Fluid overload: (4) Hypothyroidism: Plan 68 year old female with history of hypothyroidism, COPD on supplemental oxygen 4 L nasal cannula at home, active smoker, smokes more than 2 packs/day, presented with complaint of worsening shortness of breath since 2 weeks, found to have a BNP of 8162, pCO2 of 88 and chest x-ray consistent with 1. Cnlfp-nj-fxpvwsfs right and small left pleural effusions with bilateral lower lobe infiltrates, suspicious for pneumonia. 2. Emphysematous changes and Chest CTA 1. No evidence of pulmonary embolus. 2. Moderate RIGHT and small LEFT pleural effusions with compressive atelectasis RIGHT lower lobe. EKG showed sinus tachycardia at 113 bpm, right axis deviation, no acute ST-T changes. (1) Acute hypoxic and hypercarbic respiratory failure secondary to acute COPD exacerbation and possible pneumonia- Continue BiPAP at night and nasal cannula during the day Repeat ABG when 2 hours on nasal cannula Will do IV antibiotics ceftriaxone 1 g daily and IV azithromycin 500 mg daily IV Solu-Medrol 60 mg every 8 hours DuoNebs every 6 hours Will follow blood cultures 2D echo showed LV systolic function is normal with EF of 60-65% Grade 1 diastolic dysfunction RV is dilated and hypokinetic. Biatrial enlargement Mild mitral regurgitation Mild tricuspid regurgitation Mild pulmonary hypertension Pleural effusion is seen IVC is dilated No comparison studies are available. (2) Hypothyroidism-will continue levothyroxine 125 mcg daily (3) Counseled and educated about smoking cessation Cardiac diet DVT prophylaxis with subcutaneous Lovenox GI prophylaxis with IV Pepcid 20 mg twice daily She is full code for now PT eval eval and treat Social work for home health services and discharge planning. Attestations 2 Medical Necessity Statement*: She needs continued hospitalization crossing 2 midnights for management of acute hypoxic and hypercarbic respiratory failure with BiPAP support/supplemental oxygen, IV antibiotics and steroids Time Spent in Patient Care: 20 minutes Coding Level of Care Code Acute Code for Chg Fwd Diagnoses Acute respiratory failure with hypoxia and hypercapnia J96.01; J96.02 Acute exacerbation of chronic obstructive pulmonary disease (COPD) J44.1 Fluid overload E87.70 Hypothyroidism E03.9 Time Spent (min) 20
[2023-08-18] MEDS: azithromycin 500 MG in sodium chloride 0.9% 250 ML 250 MG IV (16:02)
[2023-08-18 16:06] LABS: ABG PH Result 7.34 (7.35-7.45); Arterial Blood Gas Hematocrit 49.1 % (37-47); Base Excess ABG 16.2 mmol/L (-2.0-2.0); Blood Gas Allen Test Pos; Blood Gas Operator Identificat WALCI; Blood Gas Sample Site Radial, right; Blood Gas Sample Type Arterial; Carboxyhemoglobin 1.8 %THgb (0.4-20.1); HCO3 ABG 47.7 mmol/L (22-26); HGB O2 Sat 89.8 % (95-100); Ionized Calcium Level - ABG 1.2 mmol/L (1.1-1.4); Methemoglobin 0.7 % (0.4-1.5); Oxygen Device NC; PO2 ABG 66.8 mmHg (80.0-100.0); Potassium Level - ABG 4.4 mmol/L (3.5-5.0)
[2023-08-18 16:08] LABS: ABG PCO2 89.5 mmHg (35-45)
[2023-08-19] VITALS (15 sets, daily range): BP systolic 105–128; BP diastolic 58–69; PULSE 105–124; RESP 16–26; TEMP 36.6–37; O2SAT 88–96; BMI 23.0
[2023-08-19] MEDS: famotidine 20 mg/2 mL INJ IVP ×2 (03:32→15:59)
[2023-08-19] MEDS: methylPREDNISolone sod succ 125 mg/2 mL INJ 60 MG IVP ×2 (05:35→15:59)
[2023-08-19] MEDS: enoxaparin 80 mg/0.8 mL Syringe 70 MG SUBCUT (05:35)
[2023-08-19] MEDS: ipratropium-albuterol 3 mL Neb INHALATION ×4 (07:26→20:14)
[2023-08-19] MEDS: levothyroxine 125 mcg Tablet PO (08:23)
[2023-08-19] MEDS: aspirin 81 mg EC Tablet PO (08:23)
[2023-08-19] MEDS: cefTRIAXone 1,000 MG in sodium chloride 0.9% (plus) 50 ML 100 MG IV (08:24)
--- NOTE | 2023-08-19 08:56 | ECG_ITS ---
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 Measurements Intervals [place] Rate: 108 P: 83 [place]: 143 QRS: 128 QRSD: 94 T: 34 QT: 302 QTc: 406 Interpretive Statements SINUS TACHYCARDIA LEFT ATRIAL ENLARGEMENT [-0.15mV P-WAVE IN V1/V2] RIGHT AXIS DEVIATION [QRS AXIS > 100] LOW QRS VOLTAGE IN EXTREMITY LEADS [QRS DEFLECTION < 0.5 mV IN LIMB LEADS] PATTERN CONSISTENT WITH PULMONARY DISEASE MODERATE T-WAVE ABNORMALITY, CONSIDER ANTERIOR ISCHEMIA [-0.1+ mV T-WAVE IN V3/V4] Compared to ECG 08/17/2023 17:35:25 Atrial abnormality now present T-wave abnormality now present Possible ischemia now present Myocardial infarct finding no longer present Electronically Signed On 08-19-2023 21:58:38 CDT by Sunil Child M.D. [email or web address].[email or web address]/store/[id number]
--- NOTE | 2023-08-19 10:56 | ECG_ITS ---
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 Measurements Intervals [place] Rate: 101 P: 78 [place]: 135 QRS: 113 QRSD: 90 T: 52 QT: 338 QTc: 438 Interpretive Statements SINUS TACHYCARDIA POSSIBLE LEFT ATRIAL ENLARGEMENT [-0.1mV P-WAVE IN V1/V2] RIGHT AXIS DEVIATION [QRS AXIS > 100] LOW QRS VOLTAGE IN EXTREMITY LEADS [QRS DEFLECTION < 0.5 mV IN LIMB LEADS] PATTERN CONSISTENT WITH PULMONARY DISEASE MODERATE T-WAVE ABNORMALITY, CONSIDER ANTERIOR ISCHEMIA [-0.1+ mV T-WAVE IN V3/V4] Compared to ECG 08/19/2023 09:37:34 No significant changes Electronically Signed On 08-19-2023 22:09:24 CDT by Sunil Child M.D. [email or web address].[employer]/store/[id number]
[2023-08-19 11:21] LABS: Troponin(5th) Baseline 83 ng/L (0-10)
[2023-08-19 11:33] LABS: NT Pro B Type Natriuretic Pept 2957 pg/mL (0-125)
--- NOTE | 2023-08-19 13:02 | P.PN_ITS ---
Subjective 2 Subjective: patient was seen this morning, she does report persistent shortness of breath and fatigue and malaise, does report a cough, currently on 6 L, did use BiPAP during the night, she does report shortness of breath with minimal exertion such as getting up to a chair, she tells me that she was quite weak with minimal exertion yesterday Vitals/I&O/Wt Last Vital Signs Temp 98.1 F 08/19/23 08:00 Pulse 108 H 08/19/23 12:00 Resp 22 H 08/19/23 12:00 BP 105/69 08/19/23 08:00 Pulse Ox 90 08/19/23 12:00 O2 Del Method Nasal Cannula 08/19/23 12:00 O2 Flow Rate 6 08/19/23 12:00 FiO2 45 08/19/23 09:45 08/18/23 08/19/23 08/19/23 22:59 06:59 14:59 Intake Total 590 / 1660 530 / 530 Output Total 200 / 200 300 / 300 Balance 390 / 1460 230 / 230 Weight last 48 hrs Weight 58.967 kg Weight 58.967 kg Weight 69.513 kg Physical Exam 2 Const: COMMON NORMALS: no acute distress and patient oriented x3 N UTRITIONAL APPEARANCE: cachectic OTHER: Has evidence of muscle wasting, bilateral temporal muscle wasting, bilateral clavicle fat pad thinning, thinning of fat pad and ribs, muscle loss of bilateral thighs, Resp: COMMON NORMALS: normal respiratory effort, No retractions, No use of accessory muscles and clear to auscultation bilaterally AUSCULTATION: clear to auscultation bilaterally Cardio: COMMON NORMALS: regular rate, regular rhythm, S1 normal heart sound present and S2 normal heart sound present RATE: regular rate RHYTHM: r egular rhythm HEART SOUNDS: S1 normal heart sound present and S2 normal heart sound present GI: COMMON NORMALS: Normal to inspection, nondistended, normoactive bowel sounds present Extremity: COMMON NORMALS: no pedal edema Neuro: COMMON NORMALS: patient oriented x3 Psych: COMMON NORMALS: mental status grossly normal Data 08/18/23 03:27 08/18/23 03:27 Micro: Microbiology 08/19/23 10:49 Blood Culture - Preliminary Blood SPECIMEN COLLECTED 08/19/23 10:46 Blood Culture - Preliminary Blood SPECIMEN COLLECTED 08/17/23 13:42 Blood Culture - Preliminary Blood Staphylococcus epidermidis 08/17/23 13:50 Blood Culture - Preliminary Blood NEGATIVE TO DATE A&P Assessment and plan (1) Acute respiratory failure with hypoxia and hypercapnia: (2) Acute exacerbation of chronic obstructive pulmonary disease (COPD): (3) Fluid overload: (4) Hypothyroidism: (5) Physical deconditioning: (6) Protein calorie malnutrition: (7) Gram-positive bacteremia: Plan 68 year old female with history of hypothyroidism, COPD on supplemental oxygen 4 L nasal cannula at home, active smoker, smokes more than 2 packs/day, presented with complaint of worsening shortness of breath since 2 weeks Acute hypoxic and hypercarbic respiratory failure secondary to acute COPD exacerbation and pneumonia Chest CTA 1. No evidence of pulmonary embolus. 2. Moderate RIGHT and small LEFT pleural effusions with compressive atelectasis RIGH Plan Continue BiPAP at night and nasal cannula during the day, BiPAP as needed during the day for shortness of breath, will order overnight pulse ox Continue Rocephin Continue azithromycin IV Solu-Medrol 60 mg every 8 hours DuoNebs every 6 hours 1 dose IV Lasix today Growth of Staph epidermidis in 1 bottle ? Follow blood cultures -Repeat blood cultures ordered, (2) Hypothyroidism-will continue levothyroxine 125 mcg daily (3) Counseled and educated about smoking cessation Protein calorie malnutrition, physical deconditioning, ? Likely secondary to underlying COPD ? Consult dietary ? Protein shakes twice daily, ? PT OT Sinus tachycardia Likely secondary respiratory failure NSTEMI ?CONCLUSIONS LV systolic function is normal with EF of 60-65% Grade 1 diastolic dysfunction RV is dilated and hypokinetic. Biatrial enlargement Mild mitral regurgitation Mild tricuspid regurgitation Mild pulmonary hypertension Pleural effusion is seen IVC is dilated No comparison studies are available. Plan ? No chest pain complaints ? Repeat troponin series ? Has completed 48 hours of therapeutic Lovenox, ? Switch to DVT prophylaxis Lovenox Cardiac diet DVT prophylaxis with subcutaneous Lovenox GI prophylaxis with IV Pepcid 20 mg twice daily She is full code for now PT eval eval and treat Social work for home health services and discharge planning. Attestations 2 Medical Necessity Statement*: Patient requires hospitalization, for respiratory failure Diagnoses Acute respiratory failure with hypoxia and hypercapnia J96.01; J96.02 Acute exacerbation of chronic obstructive pulmonary disease (COPD) J44.1 Fluid overload E87.70 Hypothyroidism E03.9 Physical deconditioning R53.81 Protein calorie malnutrition E46 Gram-positive bacteremia R78.81
[2023-08-19 13:41] LABS: Troponin 5 2HR 85.81 ng/L (0-10); Troponin 5 2HR Delta 2.81 ABS# (0-10)
--- NOTE | 2023-08-19 15:00 | PC.NURSE ---
pt is on bipap fiO2 45% HR ranges from upper 90s to upper 110s. SpO2-98% on BIPAP.
--- NOTE | 2023-08-19 15:17 | ECG_ITS ---
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 Measurements Intervals [place] Rate: 113 P: 83 [place]: 140 QRS: 118 QRSD: 93 T: 63 QT: 322 QTc: 443 Interpretive Statements SINUS TACHYCARDIA POSSIBLE LEFT ATRIAL ENLARGEMENT [-0.1mV P-WAVE IN V1/V2] RIGHT AXIS DEVIATION [QRS AXIS > 100] LOW QRS VOLTAGE IN EXTREMITY LEADS [QRS DEFLECTION < 0.5 mV IN LIMB LEADS] PATTERN CONSISTENT WITH PULMONARY DISEASE Compared to ECG 08/19/2023 11:14:07 T-wave abnormality no longer present Possible ischemia no longer present Electronically Signed On 08-19-2023 22:12:26 CDT by Sunil Child M.D. [email or web address] medical [id number]
[2023-08-19] MEDS: azithromycin 500 MG in sodium chloride 0.9% 250 ML 250 MG IV (15:57)
--- NOTE | 2023-08-19 16:44 | PC.NURSE ---
updated family talked to dgtr speedy about the pt is sitting up in chair today and doctor plan to get her up to sit in chair as much as possible, to be intermittently on bipap. Doctor plan to do a pulse ox overnight study. questions and concerns answered.
[2023-08-19 17:35] LABS: Troponin 5 6HR 90.66 ng/L (0-10); Troponin 5 6HR Delta 7.66 ng/L (0-12)
[2023-08-20] VITALS (17 sets, daily range): BP systolic 109–122; BP diastolic 54–63; PULSE 88–122; RESP 15–22; TEMP 36.4–36.8; O2SAT 83–100
--- NOTE | 2023-08-20 00:17 | PC.RESP ---
Patient was placed on overnight pulse ox at 0005. Patient was decreased from 6lpm NC to her baseline oxygen of 3lpm nc. Patient is in bed resting comfortably at this time, no resp distress noted.
[2023-08-20] MEDS: methylPREDNISolone sod succ 125 mg/2 mL INJ 60 MG IVP ×3 (00:31→16:32)
[2023-08-20] MEDS: famotidine 20 mg/2 mL INJ IVP ×2 (04:21→16:31)
[2023-08-20 05:07] LABS: Basophils % 0.1 %; Hematocrit 49.7 % (36-47); Lymphocytes # 0.2 10^3/uL (0.8-4.8); Lymphocytes % 3.2 %; Mean Corpuscular Hemoglobin 32.6 pg (27-33); Mean Corpuscular Volume 105.1 fl (85-98); Mean Platelet Volume 11.7 fL (7.4-10.4); Monocytes # 0.4 10^3/uL (0.2-0.9); Monocytes % 5.7 %; Neutrophils % 90.6 %; Nucleated Red Blood Cells % 0 %; Platelet Count 151 10^3/cmm (157-399); Red Blood Count 4.73 10^6/uL (3.85-5.65); Red Cell Distribution Width 15.4 % (12.1-15.1); White Blood Count 7.61 10^3/uL (3.29-11.43)
[2023-08-20 05:32] LABS: Alanine Aminotransferase 25 U/L (0-33); Albumin Level 3.6 g/dL (3.5-5.2); Alkaline Phosphatase 64 U/L (35-105); Anion Gap 9.5 (5-19); Aspartate Amino Transferase 35 U/L (0-32); Blood Urea Nitrogen 23 mg/dL (8-23); Calcium 9.1 mg/dL (8.5-10.5); Chloride 94 mmol/L (98-107); Creatinine Clr Calc Pharmacy 60.4509; Globulin 2.1 g/dL (1.3-4.6); Glomerular Filtration Rate 123.1 mL/min (90-130); Glucose 135 mg/dL (65-115); Magnesium 2.2 mg/dL (1.7-2.3); NT Pro B Type Natriuretic Pept 3707 pg/mL (0-125); Osmolality Calculated 296 mOsm/kg (285-295); Phosphorus 4.2 mg/dL (2.5-4.5); Potassium 5.5 mmol/L (3.5-5.1); Sodium 140 mmol/L (136-145); Total Bilirubin 0.4 mg/dL (0.15-1.2); Total Protein 5.7 g/dL (6.6-8.7)
[2023-08-20 05:36] LABS: Carbon Dioxide 42 mmol/L (22-29)
[2023-08-20] MEDS: enoxaparin 40 mg/0.4 mL Syringe SUBCUT (05:57)
[2023-08-20] MEDS: ipratropium-albuterol 3 mL Neb INHALATION ×3 (08:39→21:01)
--- NOTE | 2023-08-20 08:40 | PC.SOCIAL ---
IMM Update Pg. 2 of IMM updated and reviewed with patient, who verbalized understanding. Copy provided.
[2023-08-20] MEDS: cefTRIAXone 1,000 MG in sodium chloride 0.9% (plus) 50 ML 100 MG IV (08:49)
[2023-08-20] MEDS: levothyroxine 125 mcg Tablet PO (08:49)
[2023-08-20] MEDS: aspirin 81 mg EC Tablet PO (08:49)
[2023-08-20] MEDS: FUROsemide 10 mg/mL SDV 4mL 40 MG IVP (09:31)
--- NOTE | 2023-08-20 12:29 | ECG_ITS ---
[facility] Test Date: 2023-08-20 Pat Name: aDvid Frias Department: Room: 107 Gender: Female Secret Code Expert: : 1955 Requested By: Sanya Granda Order Number: [id number] Magi MD: Sunil Child M.D. Measurements Intervals [place] Rate: 128 P: 82 [place]: 141 QRS: 123 QRSD: 94 T: 54 QT: 334 QTc: 488 Interpretive Statements SINUS TACHYCARDIA RIGHT AXIS DEVIATION [QRS AXIS > 100] LOW QRS VOLTAGE IN EXTREMITY LEADS [QRS DEFLECTION < 0.5 mV IN LIMB LEADS] PATTERN CONSISTENT WITH PULMONARY DISEASE Compared to ECG 08/19/2023 15:17:54 No significant changes Electronically Signed On 08-20-2023 19:09:04 CDT by Sunil Child M.D. [email or web address] Qclaiborne county medical centerINTEX Programtrinity [facility] system.[employer]/store/OM/[id number]
--- NOTE | 2023-08-20 12:30 | PC.NURSE ---
Provider is updated on patients HR and BP. He ordered an EKG.
[2023-08-20 13:14] LABS: Anion Gap 9.9 (5-19); Blood Urea Nitrogen 22 mg/dL (8-23); Calcium 9.4 mg/dL (8.5-10.5); Chloride 90 mmol/L (98-107); Creatinine Clr Calc Pharmacy 60.4509; Glomerular Filtration Rate 123.1 mL/min (90-130); Glucose 149 mg/dL (65-115); Osmolality Calculated 296 mOsm/kg (285-295); Potassium 4.9 mmol/L (3.5-5.1); Sodium 140 mmol/L (136-145)
[2023-08-20 13:22] LABS: Carbon Dioxide 45 mmol/L (22-29)
[2023-08-20] MEDS: azithromycin 500 MG in sodium chloride 0.9% 250 ML 250 MG IV (16:31)
--- NOTE | 2023-08-20 18:31 | P.PN_ITS ---
Subjective 2 Subjective: Patient was seen this morning, currently she is sitting up in a chair, she does report her shortness of breath persist, does report shortness of breath with exertion, according to ED nursing staff and physical therapy when patient was gotten up to a chair her O2 sats did temporarily fall into the low 80s, but did recover, she is able to speak of few words without feeling short of breath, but when speaking sentences she does feel more short of breath, Vitals/I&O/Wt Last Vital Signs Temp 97.8 F 08/20/23 16:00 Pulse 115 H 08/20/23 16:00 Resp 18 08/20/23 16:00 BP 115/56 08/20/23 16:00 Pulse Ox 92 08/20/23 16:00 O2 Del Method Nasal Cannula 08/20/23 16:00 O2 Flow Rate 4 08/20/23 16:00 FiO2 45 08/19/23 15:23 08/20/23 08/20/23 08/20/23 06:59 14:59 22:59 Intake Total 290 / 290 250 / 540 Output Total 1525 / 1525 Balance -1235 / -1235 250 / -985 Weight last 48 hrs Weight 61.689 kg Weight 58.967 kg Physical Exam 2 Const: COMMON NORMALS: no acute distress and patient oriented x3 Resp: COMMON NORMALS: normal respiratory effort, No retractions and No use of accessory muscles AUSCULTATION: crackles and wheezes Cardio: COMMON NORMALS: regular rate, regular rhythm, S1 normal heart sound present and S2 normal heart sound present RATE: regular rate RHYTHM: r egular rhythm HEART SOUNDS: S1 normal heart sound present and S2 normal heart sound present GI: COMMON NORMALS: Normal to inspection, nondistended, normoactive bowel sounds present and non-tender Extremity: COMMON NORMALS: no pedal edema Neuro: COMMON NORMALS: patient oriented x3 Psych: COMMON NORMALS: mental status grossly normal Data 08/20/23 04:57 08/20/23 12:53 Micro: Microbiology 08/17/23 13:42 Blood Culture - Preliminary Blood Staphylococcus epidermidis 08/19/23 10:49 Blood Culture - Preliminary Blood NEGATIVE TO DATE 08/19/23 10:46 Blood Culture - Preliminary Blood NEGATIVE TO DATE A&P Assessment and plan (1) Acute respiratory failure with hypoxia and hypercapnia: (2) Acute exacerbation of chronic obstructive pulmonary disease (COPD): (3) Fluid overload: (4) Hypothyroidism: (5) Physical deconditioning: (6) Protein calorie malnutrition: (7) Gram-positive bacteremia: Plan 68 year old female with history of hypothyroidism, COPD on supplemental oxygen 4 L nasal cannula at home, active smoker, smokes more than 2 packs/day, presented with complaint of worsening shortness of breath since 2 weeks Acute hypoxic and hypercarbic respiratory failure secondary to acute COPD exacerbation and pneumonia Chest CTA 1. No evidence of pulmonary embolus. 2. Moderate RIGHT and small LEFT pleural effusions with compressive atelectasis RIGH Plan Continue BiPAP at night and nasal cannula during the day, BiPAP as needed during the day for shortness of breath, will order overnight pulse ox Continue Rocephin Continue azithromycin IV Solu-Medrol 60 mg every 8 hours DuoNebs every 6 hours 1 dose IV Lasix today Growth of Staph epidermidis in 1 bottle ? Follow blood cultures -Repeat blood cultures ordered, so far negative (2) Hypothyroidism-will continue levothyroxine 125 mcg daily (3) Counseled and educated about smoking cessation Protein calorie malnutrition, physical deconditioning, ? Likely secondary to underlying COPD ? Consult dietary ? Protein shakes twice daily, ? PT OT Sinus tachycardia Likely secondary respiratory failure NSTEMI ?CONCLUSIONS LV systolic function is normal with EF of 60-65% Grade 1 diastolic dysfunction RV is dilated and hypokinetic. Biatrial enlargement Mild mitral regurgitation Mild tricuspid regurgitation Mild pulmonary hypertension Pleural effusion is seen IVC is dilated No comparison studies are available. Plan ? No chest pain complaints ? Repeat troponin series ? Has completed 48 hours of therapeutic Lovenox, ? Switch to DVT prophylaxis Lovenox Cardiac diet DVT prophylaxis with subcutaneous Lovenox GI prophylaxis with IV Pepcid 20 mg twice daily She is full code for now PT eval eval and treat Social work for home health services and discharge planning. Plan for today, continue up to bed, 1 dose Lasix continue steroids, continue antibiotics, follow repeat blood cultures Attestations 2 Medical Necessity Statement*: Patient requires hospitalization for acute hypoxic respiratory failure Diagnoses Acute respiratory failure with hypoxia and hypercapnia J96.01; J96.02 Acute exacerbation of chronic obstructive pulmonary disease (COPD) J44.1 Fluid overload E87.70 Hypothyroidism E03.9 Physical deconditioning R53.81 Protein calorie malnutrition E46 Gram-positive bacteremia R78.81
[2023-08-21] VITALS (13 sets, daily range): BP systolic 92–115; BP diastolic 50–57; PULSE 93–130; RESP 12–24; TEMP 36.4–36.7; O2SAT 87–97
[2023-08-21 02:58] LABS: Basophils % 0.1 %; Hematocrit 48.2 % (36-47); Lymphocytes # 0.3 10^3/uL (0.8-4.8); Lymphocytes % 3.7 %; Mean Corpuscular HGB Conc 30.7 g/dL (30-55); Mean Corpuscular Hemoglobin 32.5 pg (27-33); Mean Corpuscular Volume 105.9 fl (85-98); Mean Platelet Volume 11.7 fL (7.4-10.4); Monocytes # 0.7 10^3/uL (0.2-0.9); Monocytes % 11.1 %; Neutrophils # 5.67 10^3/uL (1.8-7.7); Neutrophils % 84.8 %; Nucleated Red Blood Cells % 0 %; Platelet Count 152 10^3/cmm (157-399); Red Blood Count 4.55 10^6/uL (3.85-5.65); Red Cell Distribution Width 15.3 % (12.1-15.1); White Blood Count 6.69 10^3/uL (3.29-11.43)
[2023-08-21 03:19] LABS: Alanine Aminotransferase 25 U/L (0-33); Albumin Level 3.6 g/dL (3.5-5.2); Alkaline Phosphatase 59 U/L (35-105); Aspartate Amino Transferase 19 U/L (0-32); Blood Urea Nitrogen 25 mg/dL (8-23); Calcium 9.4 mg/dL (8.5-10.5); Chloride 93 mmol/L (98-107); Creatinine Clr Calc Pharmacy 60.4509; Glomerular Filtration Rate 159.2 mL/min (90-130); Glucose 141 mg/dL (65-115); Magnesium 2.3 mg/dL (1.7-2.3); Osmolality Calculated 299 mOsm/kg (285-295); Phosphorus 3.8 mg/dL (2.5-4.5); Sodium 141 mmol/L (136-145); Total Bilirubin 0.3 mg/dL (0.15-1.2); Total Protein 5.6 g/dL (6.6-8.7)
[2023-08-21 03:29] LABS: NT Pro B Type Natriuretic Pept 5081 pg/mL (0-125)
[2023-08-21 03:33] LABS: Carbon Dioxide 46 mmol/L (22-29)
[2023-08-21] MEDS: famotidine 20 mg/2 mL INJ IVP ×2 (03:50→15:21)
[2023-08-21] MEDS: enoxaparin 40 mg/0.4 mL Syringe SUBCUT (05:27)
[2023-08-21] MEDS: ipratropium-albuterol 3 mL Neb INHALATION ×4 (07:55→20:52)
[2023-08-21] MEDS: predniSONE 20 mg Tablet 40 MG PO (07:56)
[2023-08-21] MEDS: levothyroxine 125 mcg Tablet PO (07:56)
[2023-08-21] MEDS: aspirin 81 mg EC Tablet PO (07:56)
[2023-08-21] MEDS: cefTRIAXone 1,000 MG in sodium chloride 0.9% (plus) 50 ML 100 MG IV (08:01)
[2023-08-21] MEDS: FUROsemide 10 mg/mL SDV 4mL 40 MG IVP ×2 (08:16→15:21)
--- NOTE | 2023-08-21 08:20 | PC.PT ---
Resting HR 145 without flucutations. Patient saturated at 6 lpm 02 at 75%. Patient vitals contraindicated for therapy.
--- NOTE | 2023-08-21 13:43 | P.PN_ITS ---
Subjective 2 Subjective: Patient was seen this morning, currently on BiPAP, she is alert to person, to place, not to time, she can follow commands, such as squeezing my fingers, she does report more BiPAP dependence this morning, feeling more short of breath, in mild to moderate respiratory distress nasal flaring intercostal retractions, tachypnea, with tachycardia, she wants everything to be continued, she tells me, she wants us to continue all medical interventions, we discussed further diuresis, continue medical interventions, she is agreeable, patient was reexamined in the afternoon, currently on nasal cannula resting more comfortably, heart rates in the 120s sinus tachycardia, no tachypnea no evidence of respiratory failure, will give another dose of Lasix this afternoon, Vitals/I&O/Wt Last Vital Signs Temp 97.8 F 08/21/23 12:00 Pulse 114 H 08/21/23 12:00 Resp 19 H 08/21/23 12:00 BP 109/57 08/21/23 12:00 Pulse Ox 97 08/21/23 12:00 O2 Del Method Nasal Cannula 08/21/23 12:00 O2 Flow Rate 5 08/21/23 11:37 FiO2 50 08/21/23 08:25 08/20/23 08/21/23 08/21/23 22:59 06:59 14:59 Intake Total 250 / 540 200 / 740 170 / 170 Output Total 800 / 800 Balance 250 / -985 200 / -785 -630 / -630 Weight last 48 hrs Weight 60.328 kg Weight 61.689 kg Physical Exam 2 Const: COMMON NORMALS: no acute distress and patient oriented x3 Resp: COMMON NORMALS: normal respiratory effort, No retractions and No use of accessory muscles AUSCULTATION: crackles and wheezes Cardio: COMMON NORMALS: regular rate, regular rhythm, S1 normal heart sound present and S2 normal heart sound present RATE: regular rate RHYTHM: r egular rhythm HEART SOUNDS: S1 normal heart sound present and S2 normal heart sound present GI: COMMON NORMALS: Normal to inspection, nondistended, normoactive bowel sounds present and non-tender Extremity: COMMON NORMALS: no pedal edema Neuro: COMMON NORMALS: patient oriented x3 Psych: COMMON NORMALS: mental status grossly normal Data 08/21/23 02:24 06/15/24 02:24 Micro: Microbiology 08/17/23 13:42 Blood Culture - Preliminary Blood Staphylococcus epidermidis 08/19/23 10:49 Blood Culture - Preliminary Blood NEGATIVE TO DATE 08/19/23 10:46 Blood Culture - Preliminary Blood NEGATIVE TO DATE A&P Assessment and plan (1) Acute respiratory failure with hypoxia and hypercapnia: (2) Acute exacerbation of chronic obstructive pulmonary disease (COPD): (3) Fluid overload: (4) Hypothyroidism: (5) Physical deconditioning: (6) Protein calorie malnutrition: (7) Gram-positive bacteremia: Plan 68 year old female with history of hypothyroidism, COPD on supplemental oxygen 4 L nasal cannula at home, active smoker, smokes more than 2 packs/day, presented with complaint of worsening shortness of breath since 2 weeks Acute hypoxic and hypercarbic respiratory failure secondary to acute COPD exacerbation and pneumonia Chest CTA 1. No evidence of pulmonary embolus. 2. Moderate RIGHT and small LEFT pleural effusions with compressive atelectasis RIGH Plan Continue BiPAP at night and nasal cannula during the day, BiPAP as needed during the day for shortness of breath, will order overnight pulse ox Continue Rocephin Continue azithromycin De-escalate to prednisone 40 mg daily DuoNebs every 6 hours 1 dose IV Lasix today Growth of Staph epidermidis in 1 set of blood cultures ? Follow blood cultures so far negative -No history of artificial hardware, no recent surgeries ? Remains afebrile, likely contamination but will continue to monitor (2) Hypothyroidism-will continue levothyroxine 125 mcg daily (3) Counseled and educated about smoking cessation Protein calorie malnutrition, physical deconditioning, ? Likely secondary to underlying COPD ? Consult dietary ? Protein shakes twice daily, ? PT OT Sinus tachycardia Likely secondary respiratory failure NSTEMI ?CONCLUSIONS LV systolic function is normal with EF of 60-65% Grade 1 diastolic dysfunction RV is dilated and hypokinetic. Biatrial enlargement Mild mitral regurgitation Mild tricuspid regurgitation Mild pulmonary hypertension Pleural effusion is seen IVC is dilated No comparison studies are available. Plan ? No chest pain complaints ? Repeat troponin series ? Has completed 48 hours of therapeutic Lovenox, ? Switch to DVT prophylaxis Lovenox Cardiac diet DVT prophylaxis with subcutaneous Lovenox GI prophylaxis with IV Pepcid 20 mg twice daily She is full code for now PT eval eval and treat Social work for home health services and discharge planning. Plan for today, continue up to bed, 2 doses of Lasix, continue blood cultures de-escalate azithromycin, de-escalate steroids Attestations 2 Medical Necessity Statement*: Patient requires hospitalization for respiratory failure Diagnoses Acute respiratory failure with hypoxia and hypercapnia J96.01; J96.02 Acute exacerbation of chronic obstructive pulmonary disease (COPD) J44.1 Fluid overload E87.70 Hypothyroidism E03.9 Physical deconditioning R53.81 Protein calorie malnutrition E46 Gram-positive bacteremia R78.81
[2023-08-21] MEDS: azithromycin 250 mg Tablet PO (15:21)
[2023-08-22] VITALS (13 sets, daily range): BP systolic 91–144; BP diastolic 47–83; PULSE 85–131; RESP 14–23; TEMP 36.4–36.9; O2SAT 89–96
[2023-08-22] MEDS: famotidine 20 mg/2 mL INJ IVP ×2 (03:50→17:59)
[2023-08-22 03:54] LABS: Basophils % 0.1 %; Eosinophils % 0.4 %; Hematocrit 47.8 % (36-47); Lymphocytes # 0.8 10^3/uL (0.8-4.8); Lymphocytes % 10.5 %; Mean Corpuscular HGB Conc 30.5 g/dL (30-55); Mean Corpuscular Hemoglobin 31.9 pg (27-33); Mean Corpuscular Volume 104.6 fl (85-98); Mean Platelet Volume 11.8 fL (7.4-10.4); Monocytes % 13.1 %; Neutrophils # 5.75 10^3/uL (1.8-7.7); Neutrophils % 75.6 %; Nucleated Red Blood Cells % 0 %; Platelet Count 157 10^3/cmm (157-399); Red Blood Count 4.57 10^6/uL (3.85-5.65); Red Cell Distribution Width 15.3 % (12.1-15.1); White Blood Count 7.61 10^3/uL (3.29-11.43)
[2023-08-22 05:04] LABS: Alanine Aminotransferase 30 U/L (0-33); Albumin Level 3.5 g/dL (3.5-5.2); Alkaline Phosphatase 58 U/L (35-105); Anion Gap 10.5 (5-19); Aspartate Amino Transferase 23 U/L (0-32); Blood Urea Nitrogen 32 mg/dL (8-23); Calcium 9.7 mg/dL (8.5-10.5); Chloride 87 mmol/L (98-107); Creatinine Clr Calc Pharmacy 59.8645; Globulin 1.6 g/dL (1.3-4.6); Glomerular Filtration Rate 123.1 mL/min (90-130); Glucose 89 mg/dL (65-115); Magnesium 2.1 mg/dL (1.7-2.3); Osmolality Calculated 298 mOsm/kg (285-295); Phosphorus 3.7 mg/dL (2.5-4.5); Potassium 4.5 mmol/L (3.5-5.1); Sodium 141 mmol/L (136-145); Total Bilirubin 0.4 mg/dL (0.15-1.2); Total Protein 5.1 g/dL (6.6-8.7)
[2023-08-22 05:12] LABS: NT Pro B Type Natriuretic Pept 3973 pg/mL (0-125)
[2023-08-22] MEDS: enoxaparin 40 mg/0.4 mL Syringe SUBCUT (05:15)
[2023-08-22 05:22] LABS: Carbon Dioxide 48 mmol/L (22-29)
[2023-08-22] MEDS: ipratropium-albuterol 3 mL Neb INHALATION ×3 (07:35→20:42)
[2023-08-22] MEDS: levothyroxine 125 mcg Tablet PO (09:40)
[2023-08-22] MEDS: predniSONE 20 mg Tablet 40 MG PO (09:40)
[2023-08-22] MEDS: aspirin 81 mg EC Tablet PO (09:40)
[2023-08-22] MEDS: cefTRIAXone 1,000 MG in sodium chloride 0.9% (plus) 50 ML 100 MG IV (09:40)
--- NOTE | 2023-08-22 11:29 | P.PN_ITS ---
Subjective 2 Subjective: Patient was examined multiple times throughout the morning ? Early in the morning she was seen on 6L nasal cannula, in mild respiratory distress nasal flaring intercostal retractions, O2 sats while speaking a few sentences drop into the mid 80s but quickly recovered, she does report shortness of breath, fatigue, malaise, she expresses her desire to go home, she expresses her desire for hospice, but she wants to talk to her daughter ? I had a family meeting with patient and her daughter, patient and daughter expresses David's desire to go home on hospice, her daughter tells me that somebody will be with David all the time so that she can get the hospice care at home, ? I had a detailed discussion with David and her daughter about patient's underlying severe lung disease, given her hospitalization her current clinical findings, she developed significant respiratory episodes of distress, which require intermittent BiPAP, will require increased oxygen requirements for either short period of time or for a few hours and it sometimes which I have observed during the hospitalization for left a day or so she needs BiPAP to recover ? The cause is likely are acute on chronic hypoxic hypercarbic respiratory failure from underlying severe COPD, now with her pneumonia and her worsening COPD, her overall prognosis is poor, ? I do not recommend for her to go home without a plan, without a plan she would likely suffer at home and deteriorate at home in severe respiratory distress and suffer which carries significant morbidity mortality and suffering ? What I recommend is for her to go home on hospice as she does not have a desire to go to a longterm facility or to a facility such as [facility] to return receive long-term care ? I was honest with David and her daughter at home that if these episodes of respiratory distress happened at home she is likely to pass away at home, but if she goes home on hospice, we would emphasize her comfort, ease her pain and ease her suffering allow her to pass away comfortably, use morphine and Ativan to help help with air hunger, to help with suffering ? Throughout her hospitalization David has expressed a desire to not go to a halfway, to not go to any long-term care facility she wants to go home however going home without hospice seems unreasonable, and carry significant morbidity and mortality ? David's daughter tells me that her and her family have realized that this was a long time coming, they saw her deterioration over the last few weeks, they understand that her underlying lung disease is irreversible and likely she will succumb to her respiratory failure, they have been prepared and they are ready, they know that she is going to at some point they want her to at home, as David has expressed a desire to go be at home, to pass away at home, they do not want her to pass away here in the hospital, as they saw that with her at, he in the hospital, and they saw him through that and they do not want that similar situation to happen to their mother ? Thus we had a detailed discussion with her about her overall goals of care, David wants to go home on hospice, discussed the risks and benefits of hospice, she voiced understanding, all question answered, agreed to proceed ? In terms of her overall goals of care, currently she is a full code, I had a detailed discussion with her about her CODE STATUS, given her severe COPD, her chronic respiratory failure her acute respiratory failure if she were to require CPR or intubation the likelihood of her requiring prolonged intubation and mechanical ventilation tracheostomy is very high, in addition CPR would be significantly traumatic on her given her low BMI, carries a risk of significant morbidity and mortality suffering, bruit broken ribs ? Patient's daughter at bedside is very concerned about her mom ending up on long-term life support if she were to require resuscitation, she would not want her mother to go through that ? I did have a detailed discussion with David and her daughter that ultimately it is her decision to make, I discussed what intubation would entail, the process would carry significant morbidity and mortality given her severe respiratory failure currently, her underlying severe COPD,, and if she were to end up on mechanical ventilation the likelihood of her remaining on long-term I Chan is fairly likely, the likelihood of her requiring a long-term trach is very likely however certainly we will give her a chance, and see how she does, in terms of CPR, we could see how she does with the resuscitation, it is ultimately her decision to make its David's decision to make ? After discussing the risks and benefits of all options, David voiced understanding, all questions answered, she has changed her CODE STATUS to DNR/DNI, this discussion was made in front of her daughter, and I confirmed with her multiple times that she wants to be a DNR/DNI ? Patient was reexamined earlier in the afternoon, she had developed an episode of respiratory distress and placed on BiPAP currently she is on BiPAP, in mild to moderate respiratory distress nasal flaring intercostal retractions tachypnea, tachycardia with O2 sats in the low 90s dropping into the mid 80s when she speaks, I had a detailed discussion with patient and her daughter that currently she is in acute respiratory failure on top of her chronic respiratory failure Imonen to give her a dose of Lasix and increase her dose of steroids, David and her daughter expressed her wish that she wants to at home, she wants to go home on hospice, I had a detailed discussion with David and her daughter that I am to do my best to try to set up hospice, it likely cannot be done today given that we have no caseworkers, it is ascending its Father's Day, but I will do my best to get this set up hopefully tomorrow morning, so we can get her home on hospice early as possible tomorrow ? For now David and her daughter wants us to continue medical interventions, she is a DNR/DNI, if her condition does start to deteriorate here, they want us to emphasize her comfort, currently status is critical, prognosis is poor Vitals/I&O/Wt Last Vital Signs Temp 98.4 F 08/22/23 07:56 Pulse 119 H 08/22/23 11:10 Resp 16 08/22/23 11:10 BP 91/47 08/22/23 07:56 Pulse Ox 93 08/22/23 11:10 O2 Del Method BiPAP 08/22/23 11:10 O2 Flow Rate 5 08/22/23 07:35 FiO2 45 08/22/23 11:10 08/21/23 08/22/23 08/22/23 22:59 06:59 14:59 Intake Total 350 / 520 60 / 60 Output Total 122 / 5 Balance -1225 / -1855 350 / -1505 60 / 60 Weight last 48 hrs Weight 59.239 kg Weight 60.328 kg Physical Exam 2 Const: COMMON NORMALS: no acute distress GENERAL APPEARANCE: ill appearing and frail appearing NUTRITIONAL APPEARANCE: cachectic O RIENTATION/CONSCIOUSNESS: Yes awake, Yes oriented to person and Yes oriented to place Resp: EFFORT & INSPECTION: Yes abnormal respiratory pattern, Yes tachypneic and Yes respiratory distress AUSCULTATION: crackles and wheezes Cardio: COMMON NORMALS: regular rhythm, S1 normal heart sound present and S2 normal heart sound present RATE: tachycardic RHYTHM: regular rhythm H EART SOUNDS: S1 normal heart sound present and S2 normal heart sound present GI: COMMON NORMALS: Normal to inspection, nondistended, normoactive bowel sounds present and non-tender Extremity: COMMON NORMALS: no pedal edema Neuro: SENSORIUM/ORIENTATION: Yes oriented to person and Yes oriented to place Psych: COMMON NORMALS: mental status grossly normal Data 08/22/23 03:00 08/22/23 03:00 Micro: Microbiology 08/17/23 13:42 Blood Culture - Preliminary Blood Staphylococcus epidermidis A&P Assessment and plan (1) Acute respiratory failure with hypoxia and hypercapnia: (2) Acute exacerbation of chronic obstructive pulmonary disease (COPD): (3) Fluid overload: (4) Hypothyroidism: (5) Physical deconditioning: (6) Protein calorie malnutrition: (7) Gram-positive bacteremia: (8) Acute respiratory distress: (9) Community acquired pneumonia: (10) Goals of care, counseling/discussion: Plan 68 year old female with history of hypothyroidism, COPD on supplemental oxygen 4 L nasal cannula at home, active smoker, smokes more than 2 packs/day, presented with complaint of worsening shortness of breath since 2 weeks Acute hypoxic and hypercarbic respiratory failure secondary to acute COPD exacerbation and pneumonia Chest CTA 1. No evidence of pulmonary embolus. 2. Moderate RIGHT and small LEFT pleural effusions with compressive atelectasis RIGHT Plan Continue BiPAP at night and nasal cannula during the day, BiPAP as needed during the day for shortness of breath, will order overnight pulse ox Broaden antibiotic coverage to vancomycin, Zosyn Solu-Medrol 60 every 6 DuoNebs every 6 hours ? Budesonide 1 dose IV Lasix today Growth of Staph epidermidis in 1 set of blood cultures ? Follow blood cultures so far negative -No history of artificial hardware, no recent surgeries ? Remains afebrile, likely contamination but will continue to monitor (2) Hypothyroidism-will continue levothyroxine 125 mcg daily (3) Counseled and educated about smoking cessation Protein calorie malnutrition, physical deconditioning, ? Likely secondary to underlying COPD ? Consult dietary ? Protein shakes twice daily, ? PT OT Sinus tachycardia Likely secondary respiratory failure NSTEMI ?CONCLUSIONS LV systolic function is normal with EF of 60-65% Grade 1 diastolic dysfunction RV is dilated and hypokinetic. Biatrial enlargement Mild mitral regurgitation Mild tricuspid regurgitation Mild pulmonary hypertension Pleural effusion is seen IVC is dilated No comparison studies are available. Plan ? No chest pain complaints ? Repeat troponin series ? Has completed 48 hours of therapeutic Lovenox, ? Switch to DVT prophylaxis Lovenox Cardiac diet DVT prophylaxis with subcutaneous Lovenox GI prophylaxis with IV Pepcid 20 mg twice daily She is full code for now PT eval eval and treat Social work for home health services and discharge planning. Plan for today, monitor respiratory status closely, high risk of clinical deterioration, if she starts to deteriorate, agreed to proceed with comfort care, for now continue medical interventions broaden antibiotic coverage to vancomycin, Zosyn 1 dose IV Lasix, broaden steroids to 60 every 8 hours, currently in moderate respiratory distress, BiPAP dependent Patient was examined multiple times throughout the morning ? Early in the morning she was seen on 6L nasal cannula, in mild respiratory distress nasal flaring intercostal retractions, O2 sats while speaking a few sentences drop into the mid 80s but quickly recovered, she does report shortness of breath, fatigue, malaise, she expresses her desire to go home, she expresses her desire for hospice, but she wants to talk to her daughter ? I had a family meeting with patient and her daughter, patient and daughter expresses David's desire to go home on hospice, her daughter tells me that somebody will be with David all the time so that she can get the hospice care at home, ? I had a detailed discussion with David and her daughter about patient's underlying severe lung disease, given her hospitalization her current clinical findings, she developed significant respiratory episodes of distress, which require intermittent BiPAP, will require increased oxygen requirements for either short period of time or for a few hours and it sometimes which I have observed during the hospitalization for left a day or so she needs BiPAP to recover ? The cause is likely are acute on chronic hypoxic hypercarbic respiratory failure from underlying severe COPD, now with her pneumonia and her worsening COPD, her overall prognosis is poor, ? I do not recommend for her to go home without a plan, without a plan she would likely suffer at home and deteriorate at home in severe respiratory distress and suffer which carries significant morbidity mortality and suffering ? What I recommend is for her to go home on hospice as she does not have a desire to go to a longterm facility or to a facility such as [facility] to return receive long-term care ? I was honest with David and her daughter at home that if these episodes of respiratory distress happened at home she is likely to pass away at home, but if she goes home on hospice, we would emphasize her comfort, ease her pain and ease her suffering allow her to pass away comfortably, use morphine and Ativan to help help with air hunger, to help with suffering ? Throughout her hospitalization David has expressed a desire to not go to a halfway, to not go to any long-term care facility she wants to go home however going home without hospice seems unreasonable, and carry significant morbidity and mortality ? David's daughter tells me that her and her family have realized that this was a long time coming, they saw her deterioration over the last few weeks, they understand that her underlying lung disease is irreversible and likely she will succumb to her respiratory failure, they have been prepared and they are ready, they know that she is going to at some point they want her to at home, as David has expressed a desire to go be at home, to pass away at home, they do not want her to pass away here in the hospital, as they saw that with her at, he in the hospital, and they saw him through that and they do not want that similar situation to happen to their mother ? Thus we had a detailed discussion with her about her overall goals of care, David wants to go home on hospice, discussed the risks and benefits of hospice, she voiced understanding, all question answered, agreed to proceed ? In terms of her overall goals of care, currently she is a full code, I had a detailed discussion with her about her CODE STATUS, given her severe COPD, her chronic respiratory failure her acute respiratory failure if she were to require CPR or intubation the likelihood of her requiring prolonged intubation and mechanical ventilation tracheostomy is very high, in addition CPR would be significantly traumatic on her given her low BMI, carries a risk of significant morbidity and mortality suffering, bruit broken ribs ? Patient's daughter at bedside is very concerned about her mom ending up on long-term life support if she were to require resuscitation, she would not want her mother to go through that ? I did have a detailed discussion with David and her daughter that ultimately it is her decision to make, I discussed what intubation would entail, the process would carry significant morbidity and mortality given her severe respiratory failure currently, her underlying severe COPD,, and if she were to end up on mechanical ventilation the likelihood of her remaining on long-term I Chan is fairly likely, the likelihood of her requiring a long-term trach is very likely however certainly we will give her a chance, and see how she does, in terms of CPR, we could see how she does with the resuscitation, it is ultimately her decision to make its David's decision to make ? After discussing the risks and benefits of all options, David voiced understanding, all questions answered, she has changed her CODE STATUS to DNR/DNI, this discussion was made in front of her daughter, and I confirmed with her multiple times that she wants to be a DNR/DNI ? Patient was reexamined earlier in the afternoon, she had developed an episode of respiratory distress and placed on BiPAP currently she is on BiPAP, in mild to moderate respiratory distress nasal flaring intercostal retractions tachypnea, tachycardia with O2 sats in the low 90s dropping into the mid 80s when she speaks, I had a detailed discussion with patient and her daughter that currently she is in acute respiratory failure on top of her chronic respiratory failure Imonen to give her a dose of Lasix and increase her dose of steroids, David and her daughter expressed her wish that she wants to at home, she wants to go home on hospice, I had a detailed discussion with David and her daughter that I am to do my best to try to set up hospice, it likely cannot be done today given that we have no caseworkers, it is ascending its Father's Day, but I will do my best to get this set up hopefully tomorrow morning, so we can get her home on hospice early as possible tomorrow ? For now David and her daughter wants us to continue medical interventions, she is a DNR/DNI, if her condition does start to deteriorate here, they want us to emphasize her comfort, currently status is critical, prognosis is poor Attestations 2 Medical Necessity Statement*: Patient requires hospitalization for acute hypoxic respiratory failure, acute respiratory distress, secondary to COPD, pneumonia, Diagnoses Acute respiratory failure with hypoxia and hypercapnia J96.01; J96.02 Acute exacerbation of chronic obstructive pulmonary disease (COPD) J44.1 Fluid overload E87.70 Hypothyroidism E03.9 Physical deconditioning R53.81 Protein calorie malnutrition E46 Gram-positive bacteremia R78.81 Acute respiratory distress R06.03 Community acquired pneumonia J18.9 Goals of care, counseling/discussion Z71.89
[2023-08-22] MEDS: FUROsemide 10 mg/mL SDV 4mL 20 MG IVP (12:48)
[2023-08-22] MEDS: methylPREDNISolone sod succ 125 mg/2 mL INJ 60 MG IVP ×3 (12:53→23:25)
[2023-08-22] MEDS: vancomycin 1,000 MG in sodium chloride 0.9% 250 ML 250 MG IV ×2 (12:54→23:24)
[2023-08-22] MEDS: budesonide 0.5 mg/2 mL Neb INHALATION (20:42)
[2023-08-23] VITALS (13 sets, daily range): BP systolic 107–123; BP diastolic 57–78; PULSE 73–131; RESP 16–26; TEMP 36.2–36.7; O2SAT 85–96
[2023-08-23] MEDS: piperacillin-tazobactam 3.375 GM in sodium chloride 0.9% (plus) 50 ML IV ×2 (00:37→06:09)
[2023-08-23] MEDS: methylPREDNISolone sod succ 125 mg/2 mL INJ 60 MG IVP ×2 (05:32→12:11)
[2023-08-23] MEDS: famotidine 20 mg/2 mL INJ IVP (05:32)
[2023-08-23] MEDS: enoxaparin 40 mg/0.4 mL Syringe SUBCUT (05:33)
[2023-08-23] MEDS: budesonide 0.5 mg/2 mL Neb INHALATION (07:31)
[2023-08-23] MEDS: ipratropium-albuterol 3 mL Neb INHALATION ×2 (07:31→11:35)
[2023-08-23] MEDS: levothyroxine 125 mcg Tablet PO (09:15)
[2023-08-23] MEDS: aspirin 81 mg EC Tablet PO (09:15)
[2023-08-23 09:49] LABS: Hematocrit 49.8 % (36-47); Lymphocytes # 0.2 10^3/uL (0.8-4.8); Lymphocytes % 2.1 %; Mean Corpuscular HGB Conc 31.7 g/dL (30-55); Mean Corpuscular Hemoglobin 32.4 pg (27-33); Mean Corpuscular Volume 102.3 fl (85-98); Mean Platelet Volume 11.4 fL (7.4-10.4); Monocytes # 0.6 10^3/uL (0.2-0.9); Monocytes % 6.7 %; Neutrophils # 7.74 10^3/uL (1.8-7.7); Neutrophils % 90.6 %; Nucleated Red Blood Cells % 0 %; Platelet Count 164 10^3/cmm (157-399); Red Blood Count 4.87 10^6/uL (3.85-5.65); Red Cell Distribution Width 14.9 % (12.1-15.1); White Blood Count 8.54 10^3/uL (3.29-11.43)
[2023-08-23 10:21] LABS: Alanine Aminotransferase 28 U/L (0-33); Albumin Level 3.7 g/dL (3.5-5.2); Alkaline Phosphatase 61 U/L (35-105); Anion Gap 9.6 (5-19); Aspartate Amino Transferase 16 U/L (0-32); Blood Urea Nitrogen 29 mg/dL (8-23); Calcium 9.3 mg/dL (8.5-10.5); Chloride 88 mmol/L (98-107); Creatinine Clr Calc Pharmacy 58.9066; Glomerular Filtration Rate 123.1 mL/min (90-130); Glucose 265 mg/dL (65-115); Osmolality Calculated 299 mOsm/kg (285-295); Potassium 4.6 mmol/L (3.5-5.1); Sodium 137 mmol/L (136-145); Total Bilirubin 0.7 mg/dL (0.15-1.2); Total Protein 5.7 g/dL (6.6-8.7)
[2023-08-23 10:28] LABS: Carbon Dioxide 44 mmol/L (22-29)
--- NOTE | 2023-08-23 11:34 | PM.DCS ---
Discharge Providers Date of Admission: 08/17/23 15:57 Date of Discharge: August 23, 2023 Attending Provider at Admission: Kimberly Albright MD Attending Provider at Discharge: Sanya Granda MD Primary Care Provider: BLANCA Odonnell Diagnoses at Discharge Discharge Diagnosis (1) Acute respiratory failure with hypoxia and hypercapnia: Status: Acute (2) Acute exacerbation of chronic obstructive pulmonary disease (COPD): Status: Acute (3) Fluid overload: Status: Acute (4) Hypothyroidism: Status: Acute (5) Physical deconditioning: Status: Acute (6) Protein calorie malnutrition: Status: Acute (7) Gram-positive bacteremia: Status: Acute (8) Acute respiratory distress: Status: Acute (9) Community acquired pneumonia: Status: Acute (10) Goals of care, counseling/discussion: Status: Acute Reason for Visit Reason for Visit: SOB, Gen weakness Hospital Course Hospital Course David Frias is a 68 year old female with history of hypothyroidism, COPD on supplemental oxygen 4 L nasal cannula at home, active smoker, smokes more than 2 packs/day, presented with complaint of worsening shortness of breath since 2 weeks. Patient states that she started feeling short of breath 2 weeks ago initially on exertion and then gradually progressed to shortness of breath at rest, was not associated with any fever, cold, although she was coughing initially but no significant cough, chest pain, urinary or bowel complaints. She denies any history of recent travel or sick contact. She admits she has not been smoking since last 2 weeks and was increasing her supplemental oxygen but without any relief. She had a PCP appointment scheduled 1 week ago but she missed it. Her shortness of breath made her bedbound gradually and she was sleeping most of the time and it was associated with severe weakness and right-sided facial swelling.She recently has been using medical marijuana which she says helps her to calm her down and improves her breathing. In ER she was found to have a BNP of 8162, first set of troponins 106, ABGs 7 point 3/88/79/44/92% on room air. She was started on BiPAP at 18//12/35% FiO2 and was still saturating at 79%. FiO2 increased to 40% and she is saturating 88 to 89%. Patient was admitted to [facility] for acute hypoxic respiratory failure secondary to COPD, pneumonia, fluid overload, NSTEMI, was monitored as inpatient, received IV diuresis, IV steroids, IV antibiotics, BiPAP therapy. During her hospitalization, patient had episodes significant respiratory distress requiring BiPAP dependence, episodes of hypoxia, respiratory distress, detailed discussion about her goals of care with patient and her daughter.discussed her overall goals of care given her underlying severe COPD, severe deconditioning, and her overall desire to go home. After discussing risk and benefits of all options available to patient, she voiced understanding, all questions answered, patient desired to go home on hospice. She will be discharged home on hospice, prednisone taper, Levaquin, albuterol, Advair. Physical Exam Const: COMMON NORMALS: no acute distress and patient oriented x3 Resp: COMMON NORMALS: normal respiratory effort, No retractions and No use of accessory muscles EFFORT & INSPECTION: Yes tachypneic AUSCULTATION: crackles and wheezes Cardio: COMMON NORMALS: regular rate, regular rhythm, S1 normal heart sound present and S2 normal heart sound present RATE: regular rate RHYTHM: regular rhythm HEART SOUNDS: S1 normal heart sound present and S2 normal heart sound present GI: COMMON NORMALS: Normal to inspection, nondistended, normoactive bowel sounds present and non-tender Extremity: COMMON NORMALS: no pedal edema Neuro: COMMON NORMALS: patient oriented x3 Psych: COMMON NORMALS: mental status grossly normal Urinary Catheter Management: Henao: Cath Placed During This Visit: yes Reason for Continuing Indwelling Catheter: Hospice/Comfort/Palliative Care Urinary Catheter Date of Insertion: 08/22/23 Urinary Catheter Time of Insertion: 11:48 Discharge Data Studies Completed and Pending Completed Studies During Hospitalization Category Date Time Status CT angio chest PE protcl [id number] Stat Cat Scan 08/17/23 13:36 Completed XR chest 1V portable [id number] Stat Exams 08/17/23 12:23 Completed CV. echo complete* [id number] Stat Ultrasound 08/17/23 15:20 Completed US venous duplex lower extremity bilat [CV venous Ultrasound 08/17/23 13:36 [place] [id number]] Stat Pending at discharge Category Date Time Status Blood Culture Stat Lab 08/19/23 10:49 Results Vancomycin Trough Timed Lab 08/23/23 23:00 Ordered Radiology Impressions Chest X-Ray 08/17/23 12:23 IMPRESSION: 1. [id number] right and small left pleural effusions with bilateral lower lobe infiltrates, suspicious for pneumonia. 2. Emphysematous changes Chest CTA 08/17/23 13:36 IMPRESSION: 1. No evidence of pulmonary embolus. 2. Moderate RIGHT and small LEFT pleural effusions with compressive atelectasis RIGHT lower lobe. Laboratory Results WBC 8.54 10^3/uL (3.29-11.43) 08/23/23 09:39 RBC 4.87 10^6/uL (3.85-5.65) 08/23/23 09:39 Hgb 15.80 g/dL (11.27-16.99) 08/23/23 09:39 Hct 49.8 % (36-47) H 08/23/23 09:39 MCV 102.3 fl (85-98) H 08/23/23 09:39 MCH 32.4 pg (27-33) 08/23/23 09:39 MCHC 31.7 g/dL (30-55) 08/23/23 09:39 RDW 14.9 % (12.1-15.1) 08/23/23 09:39 Plt Count 164 10^3/cmm (157-399) 08/23/23 09:39 MPV 11.4 fL (7.4-10.4) H 08/23/23 09:39 Neut % (Auto) 90.6 % 08/23/23 09:39 Lymph % (Auto) 2.1 % 08/23/23 09:39 Rains % (Auto) 6.7 % 08/23/23 09:39 Eos % (Auto) 0.0 % 08/23/23 09:39 Baso % (Auto) 0.0 % 08/23/23 09:39 Neut # (Auto) 7.74 10^3/uL (1.8-7.7) H 08/23/23 09:39 Lymph # (Auto) 0.2 10^3/uL (0.8-4.8) L 08/23/23 09:39 Rains # (Auto) 0.6 10^3/uL (0.2-0.9) 08/23/23 09:39 Eos # (Auto) 0.0 10^3/uL (0.0-0.8) 08/23/23 09:39 Baso # (Auto) 0.0 10^3/uL (0.0-0.1) 08/23/23 09:39 Nucleated RBC % (auto) 0 % 08/23/23 09:39 Nucleated RBCs # 0.0 /100WBC 08/23/23 09:39 Specimen Type Arterial 08/18/23 15:54 Sample Site Radial, right 08/18/23 15:54 ABG pH 7.34 (7.35-7.45) L 08/18/23 15:54 ABG pCO2 89.5 mmHg (35-45) H* 08/18/23 15:54 ABG pO2 66.8 mmHg (80.0-100.0) L 08/18/23 15:54 ABG PO2/FiO2 Ratio 0 08/17/23 17:13 ABG HCO3 47.7 mmol/L (22-26) H 08/18/23 15:54 ABG O2 Saturation 92.0 08/18/23 15:54 ABG Base Excess 16.2 mmol/L (-2.0-2.0) H 08/18/23 15:54 Manuel Test Pos 08/18/23 15:54 A-a O2 Gradient Not Reportable 08/18/23 15:54 Hematocrit 49.1 % (37-47) H 08/18/23 15:54 Hgb O2 Saturation 89.8 % (95-100) L 08/18/23 15:54 Carboxyhemoglobin 1.8 %THgb (0.4-20.1) 08/18/23 15:54 Methemoglobin 0.7 % (0.4-1.5) 08/18/23 15:54 Total Hemoglobin 16.0 g/dL (12-16) 08/18/23 15:54 Sodium 137.0 mmol/L (131-143) 08/18/23 15:54 Potassium 4.4 mmol/L (3.5-5.0) 08/18/23 15:54 Glucose 195.0 mg/dL (70-115) H 08/18/23 15:54 Ionized Calcium 1.2 mmol/L (1.1-1.4) 08/18/23 15:54 O2 Delivery Device Nc 08/18/23 15:54 O2 Liters/Min 5.0 % 08/18/23 15:54 FiO2 40.0 % 08/17/23 17:13 Ash Handler ID [place] 08/18/23 15:54 Sodium 137 mmol/L (136-145) 08/23/23 09:39 Potassium 4.6 mmol/L (3.5-5.1) 08/23/23 09:39 Chloride 88 mmol/L (98-107) L 08/23/23 09:39 Carbon Dioxide 44 mmol/L (22-29) H* 08/23/23 09:39 Anion Gap 9.6 (5-19) 08/23/23 09:39 BUN 29 mg/dL (8-23) H 08/23/23 09:39 Creatinine 0.5 mg/dL (0.5-0.9) 08/23/23 09:39 GFR Calculation 123.1 mL/min (90-130) 08/23/23 09:39 Glucose 265 mg/dL (65-115) H 08/23/23 09:39 Calculated Osmolality 299 mOsm/kg (285-295) H 08/23/23 09:39 Lactic Acid 1.0 mmol/L (0.5-2.2) 08/17/23 13:03 Calcium 9.3 mg/dL (8.5-10.5) 08/23/23 09:39 Phosphorus 3.7 mg/dL (2.5-4.5) 08/22/23 03:00 Magnesium 2.1 mg/dL (1.7-2.3) 08/22/23 03:00 Total Bilirubin 0.7 mg/dL (0.15-1.2) 08/23/23 09:39 AST 16 U/L (0-32) 08/23/23 09:39 ALT 28 U/L (0-33) 08/23/23 09:39 Alkaline Phosphatase 61 U/L (35-105) 08/23/23 09:39 Troponin T Baseline 83 ng/L (0-10) H 08/19/23 10:46 Troponin T 120 Minute 85.81 ng/L (0-10) H 08/19/23 12:52 Delta Troponin T 2.81 ABS# (0-10) 08/19/23 12:52 Troponin T Hi Sens 6Hr 90.66 ng/L (0-10) H 08/19/23 17:05 Troponin T Hi Sens 6Hr Delta 7.66 ng/L (0-12) 08/19/23 17:05 NT-Pro-B Natriuret Pep 3973 pg/mL (0-125) H 08/22/23 03:00 Total Protein 5.7 g/dL (6.6-8.7) L 08/23/23 09:39 Albumin 3.7 g/dL (3.5-5.2) 08/23/23 09:39 Globulin 2.0 g/dL (1.3-4.6) 08/23/23 09:39 Urine Color Yellow (Yellow) 08/17/23 21:45 Urine Appearance Clear (CLEAR) 08/17/23 21:45 Urine pH 6 (5-7) 08/17/23 21:45 Ur Specific [place] 1.015 (1.005-1.030) 08/17/23 21:45 Urine Protein Neg (Negative) 08/17/23 21:45 Urine Glucose (UA) Norm (Normal) 08/17/23 21:45 Urine Ketones Negative (Negative) 08/17/23 21:45 Urine Blood 2+ (Negative) H 08/17/23 21:45 Urine Nitrate Negative (Negative) 08/17/23 21:45 Urine Bilirubin Neg (Negative) 08/17/23 21:45 Urine Urobilinogen Norm mg/dL (Negative) 08/17/23 21:45 Ur Leukocyte Esterase Negative (Negative) 08/17/23 21:45 Urine RBC 0-4 /hpf (0-2) H 08/17/23 21:45 Urine WBC 0-4 /hpf (0-5) H 08/17/23 21:45 Ur Squamous Epith Cells 0-4 /hpf (0-5) H 08/17/23 21:45 Amorphous Sediment Not Reportable 08/17/23 21:45 Urine Bacteria Trace /hpf (NONE) 08/17/23 21:45 Vitals Last Vital Signs Temp 97.9 F 08/23/23 11:18 Pulse 123 H 08/23/23 11:18 Resp 22 H 08/23/23 11:18 BP 107/57 08/23/23 11:18 Pulse Ox 93 08/23/23 11:18 O2 Del Method Nasal Cannula 08/23/23 11:18 O2 Flow Rate 6 08/23/23 07:31 FiO2 45 06/17/24 04:00 Discharge Plan Discharge Patient Disposition: Hospice - Home Condition: Fair Prescriptions: New levofloxacin 750 mg tablet 750 mg PO DAILY 5 Days Qty: 5 0RF albuterol sulfate 90 mcg/actuation HFA aerosol inhaler 1 inh inhalation Q6H PRN (Reason: shortness of breath or wheezing) Qty: 8.5 0RF fluticasone propion-salmeterol [Advair Diskus] 250-50 mcg/dose blister with device 1 inh inhalation BID Qty: 60 0RF prednisone 10 mg tablet 10 mg PO DIRECTED Qty: 52 0RF Rx Instructions: Take 4 tabs a day for 5 days, 3 tabs a day for 5 days, 2 tabs a day for 5 days, 0.5 tab a day for 5 days Continued levothyroxine 125 mcg tablet 125 mcg PO DAILY Qty: 30 2RF Discharge Orders: Discharge Order (Routine); Ordered 08/23/23 Ordered By: Sanya Granda Referrals: [facility] [Outside] Marely Head, HOSPITAL ACCOUNT MANAGER [Primary Care Provider] - (You will need to follow up with your [facility] to do a case mix work up in order to get a [facility] aide at home. Please talk with her regarding a referral for driven services through [facility] ) Discharge Diet: Regular Discharge Activity: Resume usual activity Activity Restrictions/Additional Instructions: - Discharged on home hospice Discharge Attestations Time Spent in Discharge Care*: greater than 30 min Quality Metrics Clinical Quality Measures [ No reported AMI, CVA or VTE this stay] Coding Level of Care Code 08011 Total time (in minutes) for Discharge: 45 Diagnoses Acute respiratory failure with hypoxia and hypercapnia J96.01; J96.02 Acute exacerbation of chronic obstructive pulmonary disease (COPD) J44.1 Fluid overload E87.70 Hypothyroidism E03.9 Physical deconditioning R53.81 Protein calorie malnutrition E46 Gram-positive bacteremia R78.81 Acute respiratory distress R06.03 Community acquired pneumonia J18.9 Goals of care, counseling/discussion Z71.89
[2023-08-23] MEDS: vancomycin 1,000 MG in sodium chloride 0.9% 250 ML 200 MG IV (12:12)
--- NOTE | 2023-08-23 13:36 | PC.SOCIAL ---
IMM Updated Updated pt on IMM. No questions voiced. Provided pt a copy. Initialed, dated, & timed copy in chart.
--- NOTE | 2023-08-23 15:15 | PC.NURSE ---
Pt and her daughter expressed a desire to go home with the mercado catheter in place. Dr. Granda was ok with the pt going home with a mercado catheter in place if it was more of a comfort measure with the understanding of the risk for CAUTI. Pt and daughter stated understanding of the risk for infection and were willing to take a risk. Explained to the pt that she should have the mercado removed just as soon as she is able to get up OOB and walk to the restroom. Pt and daughter again stated understanding.
--- NOTE | 2023-08-23 16:05 | PC.NURSE ---
Discharge Note Patient discharged to [] via [] accompanied by []. Discharge instructions reviewed with patient and/or loss control representative. Mobile pharmacy medications and/or prescriptions provided. Belongings/home medications returned.
--- NOTE | 2023-08-23 16:05 | PC.NURSE ---
Discharge Note Patient discharged to [home] via [w/c to POV] accompanied by [family]. Discharge instructions reviewed with patient and/or account maintenance representative. Mobile pharmacy medications and/or prescriptions provided. Belongings/home medications returned.
== END 2023-08-23 16:05 | disposition hospice, home (50) | DRG 193 ==
LOC: ER 15:38 → CSU 15:57
PROVIDERS: Admitting Provider Internal Medicine; Emergency Provider Family Medicine; PCP Nurse Practitioner; Visit Provider Family Medicine
DX: J18.9 Pneumonia, unspecified organism (principal); I21.4 Non-ST elevation (NSTEMI) myocardial infarction; J96.01 Acute respiratory failure with hypoxia; J96.02 Acute respiratory failure with hypercapnia; J44.1 Chronic obstructive pulmonary disease with (acute) exacerbation; E46 Unspecified protein-calorie malnutrition; E03.9 Hypothyroidism, unspecified; J43.9 Emphysema, unspecified; F17.210 Nicotine dependence, cigarettes, uncomplicated; E87.70 Fluid overload, unspecified; Z86.73 Personal history of transient ischemic attack (TIA), and cerebral infarction without residual deficits; Z99.81 Dependence on supplemental oxygen; Z74.01 Bed confinement status; Z68.22 Body mass index [BMI] 22.0-22.9, adult; Z66 Do not resuscitate
CPT/HCPCS: 36415; 36600; 51702; 71045; 71275; 80048; 80051; 80053; 81001; 82330; 82805; 83605; 83735; 83880; 84100; 84484; 85025; 87040; 87077; 87150; 87186; 87205; 93005; 93306; 93970; 94640; 94660; 94664; 96365; 96367; 96372; 96376; 97110; 97116; 97162; 97530; 99291; J0456; J0696; J1650; J1940; J1956; J2543; J2919; J3370; J3490; J7050; J7512; J7626; Q0144; Q9967